=== PATIENT | male | born 1955 | race American Indian/Alaskan Native ===

== ENCOUNTER 2016-05-17 11:34 | Inpatient (IN) | payer BC ==
--- NOTE | 2016-05-17 11:50 | PDOC ---
History of Present Illness - General Chief Complaint: Weakness Stated Complaint: WEAKNESS Time Seen by Provider: 05/17/16 11:36 History Source: Patient Exam Limitations: No Limitations - History of Present Illness Initial Comments: 05/17/16 11:38 The patient is a 61 year old male, with significant past medical history HTN, HLD, CAD, diabetes mellitus type 2 (on insulin), cardiac sarcoidosis, s/p AL s/ p stent x 1, atrial flutter status post electrical cardioversion 8 Pt presents to the ER via EMS s/p inability to get out of bed this morning Pt is having difficulty giving a history as he states, he feels confused PT tells me that he has had a gastroenteritis for the past 2 weeks (according to his , 1 week) which he got from several ill children at his work place. As a result he has had nausea, vomiting, diarrhea Pt denies abdominal pain Pt was noted to worsen significantly between yesterday and today No fevers, no chills No recent travel counselor states he was recently on antibiotics (pt denies this) He completed a prednisone taper 2 weeks ago for his cardiac sarcoidosis Denies chest pain, SOB. Denies lightheadedness,dizziness, paresthesias. PMH: as above PSH: cholecystectomy, PPM Medications: Zyloprim, Mepron, Tikosyn, Lasix, Victoza, Glucophage, Toprol, Cellcept, Deltasone, Xarelto, Crestor, Aldactone, Micardis, Lantus Solostar. PCP- Dr. Toro Cardiac history: Cardiac sarcoidosis with anteroseptal and image. Hypokinesis, depressed ejection fraction) 39% on 04/2015) disease, atrial tach or tachycardia arrhythmias status post permanent pacemaker, ICD Allergies: none reported 05/17/16 11:51 05/17/16 11:55 GENERAL/CONSTITUTIONAL: Yes: Weakness No: fever, chills, loss of appetite. HEAD, EYES, EARS, NOSE AND THROAT: No: change in vision, ear pain, discharge, sore throat, throat swelling. CARDIOVASCULAR: No: chest pain, lightheadedness, palpitations, syncope RESPIRATORY: Yes: cough No: shortness of breath GASTROINTESTINAL: Yes: nausea, vomiting, diarrhea No: abdominal pain GENITOURINARY: No: dysuria, hematuria, frequency, urgency, flank pain. MUSCULOSKELETAL: No: back pain, neck pain, joint pain, muscle swelling or pain SKIN AND BREASTS: No: lesions, pallor, rash or easy bruising. NEUROLOGIC: No: headache, vertigo, paresthesias, weakness ENDOCRINE: No: unexplained weight gain or loss HEMATOLOGIC/LYMPHATIC: No: anemia, easy bleeding, swelling nodes. GENERAL: The patient is in no acute distress, pt appears very weak, A&O x 3, pt feels confused. HEAD: Normal with no signs of trauma. EYES: PERRLA, EOMI, sclera anicteric, conjunctiva clear. ENT: Ears normal, nares patent, oropharynx clear without exudates. Dry mucous membranes. NECK: Normal range of motion, supple without lymphadenopathy, JVD, or masses. LUNGS: Breath sounds equal, clear to auscultation bilaterally. No wheezes, and no crackles. HEART:Regular rate and rhythm, normal S1 and S2 without murmur, rub or gallop. ABDOMEN: Soft, nontender, normoactive bowel sounds. No guarding, no rebound. No masses palpable. EXTREMITIES: Normal range of motion, no edema. NEUROLOGICAL: Cranial nerves II through XII grossly intact. Normal speech. No focal neurological deficits. MUSCULOSKELETAL: Back non-tender to palpation, no CVA tenderness SKIN: Warm, Dry, normal turgor, no rashes or lesions noted. 05/17/16 15:15 Timing/Duration: unsure Past History - Past Medical History Allergies/Adverse Reactions: Allergies Allergy/AdvReac Type Severity Reaction Status Date / Time No Known Allergies Allergy Verified 05/17/16 11:36 Home Medications: Ambulatory Orders Allopurinol [Zyloprim -] 300 mg PO DAILY 01/21/16 Dofetilide [Tikosyn] 250 mcg PO BID 01/21/16 Furosemide [Lasix -] 60 mg PO Q48H 01/21/16 Liraglutide [Victoza -] 1.8 mg SQ DAILY@0700 01/21/16 Metoprolol Succinate [Toprol XL -] 25 mg PO DAILY 01/21/16 Mycophenolate Mofetil [Cellcept -] 1,500 mg PO DAILY 01/21/16 Rivaroxaban [Xarelto -] 20 mg PO HS 01/21/16 Rosuvastatin Calcium [Crestor] 5 mg PO Q48H 01/21/16 Spironolactone [Aldactone] 25 mg PO DAILY 01/21/16 Telmisartan [Micardis] 40 mg PO DAILY 01/21/16 Canagliflozin [Invokana] 300 mg PO DAILY 05/17/16 Furosemide [Lasix] 40 mg PO Q48H 05/17/16 Gabapentin [Neurontin] 100 mg PO HS 05/17/16 Glipizide 5 mg PO BID 05/17/16 Mycophenolate Mofetil [Cellcept] 1,000 mg PO HS 05/17/16 Zolpidem Tartrate [Ambien] 5 mg PO HS 05/17/16 Anemia: No Asthma: No Cancer: No Cardiac Disorders: Yes (PPM, A-FIB,AL 2011) CVA: No COPD: No CHF: No Dementia: No Diabetes: Yes GI Disorders: No Disorders: No HTN: No Hypercholesterolemia: Yes Liver Disease: No Seizures: No Thyroid Disease: No - Surgical History Abdominal Surgery: No Appendectomy: No Cardiac Surgery: Yes (STENT X1, PPM) Cholecystectomy: Yes Lung Surgery: No Neurologic Surgery: No Orthopedic Surgery: No - Psycho/Social/Smoking Cessation Hx Anxiety: No Suicidal Ideation: No Smoking History: Never smoked Hx Alcohol Use: No Drug/Substance Use Hx: No Substance Use Type: None Hx Substance Use Treatment: No Procedures - Central Line Central Line Lumen: triple Central Line Position: femoral (R) Anesthesia: 1% Lidocaine Amount of anesthesia (ccs): 3 Complications: none Post Central Line Insertion: good blood return ED Treatment Course - LABORATORY CBC & Chemistry Diagram: 05/19/16 05:10 05/19/16 05:10 Medical Decision Making - Critical Care Time Total Critical Care Time (minutes): 120 Critical Care Statement: The care of this patient involved high complexity decision making to prevent further life threatening deterioration of the patient 's condition and/or to evalute & treat vital organ system(s) failure or risk of failure. - Medical Decision Making 05/17/16 12:06 Will plan to do Labs CXR Possibly CT Stool cultures ? Will gently hydrates - per old records pt F = 39% trying to obtain pacemaker records (interrogation yesterday) Pt was given 400 cc NS by EMS Initial BP 89/44 05/17/16 12:10 BP transiently improved to 102/59 05/17/16 12:20 Rectal temp 101.8 BP decreased to 89/50 02/04/17 12:21 Call placed to pt PMD Dr. Toro 05/17/16 12:25 Call placed to physician covering Dr Toro He doesn't work at [facility] Recommends calling the transfer line at [facility] 05/17/16 12:28 Laboratory Tests 05/17/16 11:54 Sodium 121 L* Potassium 4.1 Chloride 88 L Carbon Dioxide 19 L Anion Gap 14 BUN 64 H Creatinine 2.1 H Random Glucose 262 H 05/17/16 12:29 Laboratory Tests 05/17/16 11:54 WBC 16.8 H Hgb 14.6 Hct 44.8 Plt Count 105 L Neutrophils % 89.8 H Lymphocytes % 1.7 L 05/17/16 12:53 05/17/16 12:[address] Neri PT can be transferred if Influenza negative but there are no beds at this time ( admitted patients boarding in the ER) and for sure there are no isolation beds ( if patient has influenza) His baseline creatinine is 1.66 Labs demonstrate: Hyponatremia Acute renal insufficiency Leukocytosis (? acute infection vs. effect of prednisone) 05/17/16 13:07 Laboratory Tests 05/17/16 05/17/16 11:54 11:54 INR 3.11 H Acetone, Qual Negative NS bolus of 500 cc ordered for hypotension No evidence of CHF on Xray Will continue to monitor for shortness of breath given CHF history 05/17/16 13:07 When more awake, pt states he actually fell while trying to get into bed this morning He was unable to get up off the floor which was why his called EMS Upon EMS arrival, they also had difficulty getting him up off the floor Will send for Head CT given elevated INR 05/17/16 14:22 Case reviewed with JULIUS Montgomery She will review case with Sriram Case reviewed with Dr Whittington Will Admit to ICU Pt would rather that he go to another hospital We do not have a bed for this patient to go to [facility] at this time, I do not think it prudent to keep pt in the ER awaiting a bed at an outside hospital 05/17/16 16:05 Pt BP remains low INR elevated Right femoral line placed Levophed started at 5mcg/min EMS has arrived to transport pt to [facility] ICU Pt blood pressure remains low This will have to be titrated up, ? vs addition of Inotrope?? Dobutamine I am concerned about repeated IVF boluses w/o definitive airway as his EF is 39% ?, BNP is 10k Pt appears less dehydrated but still clinically appears to be behind on fluids Case reviewed with JULIUS Pantoja 05/17/16 21:41 Clinical Impression: Septic Shock, unclear source *DC/Admit/Observation/Transfer Diagnosis at time of Disposition: Dehydration, Renal insufficiency, Hyponatremia Sepsis Qualifiers: Sepsis type: sepsis due to unspecified organism Qualified Code(s): A41.9 - Sepsis, unspecified organism - Discharge Dispostion Condition at time of disposition: Guarded Admit: Yes
[2016-05-17 11:54] VITALS: BMI 26.9
[2016-05-17] MEDS ORDERED: SODIUM CHLORIDE 1,000 ML IV STA ×2 (11:55→14:27)
[2016-05-17 12:18] LABS: MCH 31.2 pg (25.7-33.7); MCHC 32.7 g/dl (32.0-35.9); MEAN CELL VOLUME 95.4 fl (80-96); PLATELET COUNT 105 K/MM3 (134-434); RDW 13.9 % (11.9-15.9); WHITE BLOOD COUNT 16.8 K/mm3 (4.0-10.0)
[2016-05-17] MEDS ORDERED: ACETAMINOPHEN 1000 MG/100 ML VIAL (NON FORMULARY) IVPB ONE (12:19)
[2016-05-17 12:43] LABS: BILIRUBIN,TOTAL 2.5 mg/dl (0.2-1.0); CALCIUM 8.3 mg/dl (8.4-10.2); CREATININE 2.1 mg/dl (0.6-1.3); MAGNESIUM 2.3 mg/dL (1.8-2.4); TOT PROT 5.5 g/dl (6.4-8.3)
[2016-05-17 12:51] LABS: ACTIVATED PTT 46.5 SECONDS (24.0-38.9)
[2016-05-17 12:55] LABS: INR 3.11 (0.82-1.09); PROTHROMBIN TIME (PATIENT) 33.9 SEC (10.2-13.0)
[2016-05-17] MEDS ORDERED: SODIUM CHLORIDE 250 ML IV STA ×2 (12:57→13:18)
[2016-05-17 13:11] LABS: TROPONIN I (DFP) 0.21 ng/ml (0.03-0.50)
[2016-05-17 13:30] LABS: PLATELET ESTIMATE NORMAL (NORMAL)
[2016-05-17 13:31] LABS: VENOUS PH 7.35 (7.31-7.41)
[2016-05-17 13:39] LABS: CK MB 5.4 ng/ml (0.3-4.0)
[2016-05-17] MEDS ORDERED: PIPERACILLIN/TAZOB 3.375 GM 3.375 GM in DEXTROSE 5%-WATER - 50 ML IVPB ONE (13:41)
[2016-05-17] MEDS ORDERED: VANCOMYCIN 1,000 MG in DEXTROSE 5%-WATER - 250 ML IVPB ONE (13:42)
[2016-05-17] MEDS ORDERED: PIPERACILLIN/TAZOBACTAM 3.375 GM VIAL IVPB ONE (13:52)
[2016-05-17] MEDS ORDERED: VANCOMYCIN 1,000 MG VIAL (RESTRICTED TO ID ONLY) ONE (13:53)
[2016-05-17] MEDS ORDERED: SODIUM CHLORIDE 0.9% 1000 ML INFUS.BAG IV ONE (14:27)
[2016-05-17] MEDS ORDERED: NOREPINEPHRINE BITARTRATE 4,000 MCG in DEXTROSE 5%-WATER - 496 ML IV ONE (15:55)
--- NOTE | 2016-05-17 15:55 | HP ---
CHIEF COMPLAINT: Nausea, vomiting, diarrhea, weakness PCP: Dr. Toro, [place] Cardiology: Dr. Alonzo, [facility] EP: Dr. Hudson, [facility] HISTORY OF PRESENT ILLNESS 61 year-old man with a PMH of HTN, HLD, CAD s/p AL s/p stents s/p PPM/AICD, 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 About 2 weeks ago the patient developed chills after having been exposed to several ill children at work. He then developed nausea, vomiting, and diarrhea and those symptoms have persisted. He became profoundly weak over the past 24 hours. This morning he slipped off his bed to the floor and was too weak to get up. He also felt mentally confused. He has a mild cough. 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[place] [place] Smoking: no Alcohol: no Drugs: no Family History: compliance professional at a private [employer] in [place] Allergies No Known Allergies Allergy (Verified 05/17/16 11:36) Home Medications Medication Instructions Recorded Allopurinol [Zyloprim -] 300 mg PO DAILY 01/21/16 Dofetilide [Tikosyn] 250 mcg PO BID 01/21/16 Furosemide [Lasix -] 60 mg PO DAILY 01/21/16 Liraglutide [Victoza -] 1.8 mg SQ DAILY@0700 01/21/16 Metoprolol Succinate [Toprol XL -] 25 mg PO DAILY 01/21/16 Mycophenolate Mofetil [Cellcept -] 1,000 mg PO BID 01/21/16 Rivaroxaban [Xarelto -] 20 mg PO HS 01/21/16 Rosuvastatin Calcium [Crestor] 5 mg PO HS 01/21/16 Spironolactone [Aldactone] 25 mg PO DAILY 01/21/16 Telmisartan [Micardis] 40 mg PO DAILY 01/21/16 Canagliflozin [Invokana] 300 mg PO DAILY 05/17/16 Gabapentin [Neurontin] 100 mg PO HS 05/17/16 Glipizide 5 mg PO DAILY 05/17/16 Zolpidem Tartrate [Ambien] 5 mg PO HS 05/17/16 REVIEW OF SYSTEMS CONSTITUTIONAL: Present: chills, weakness Absent: fever, diaphoresis, malaise, loss of appetite, weight change HEENT: Absent: rhinorrhea, nasal congestion, throat pain, throat swelling, difficulty swallowing, mouth swelling, ear pain, eye pain, visual changes CARDIOVASCULAR: Absent: chest pain, syncope, palpitations, irregular heart rate, lightheadedness , peripheral edema RESPIRATORY: Present: cough Absent: shortness of breath, dyspnea with exertion, orthopnea, wheezing, stridor , hemoptysis GASTROINTESTINAL: Present: nausea, vomiting, diarrhea Absent: abdominal pain, abdominal distension, constipation, melena, hematochezia GENITOURINARY: Present: oliguria Absent: dysuria, frequency, urgency, hesitancy, hematuria, flank pain, genital pain MUSCULOSKELETAL: Present: myalgia Absent: arthralgia, joint swelling, back pain, neck pain SKIN: Absent: rash, itching, pallor HEMATOLOGIC/IMMUNOLOGIC: Absent: easy bleeding, easy bruising, lymphadenopathy, frequent infections ENDOCRINE: Absent: unexplained weight gain, unexplained weight loss, heat intolerance, cold intolerance NEUROLOGIC: Present: mental confusion Absent: headache, focal weakness or paresthesias, dizziness, unsteady gait, seizure, bladder or bowel incontinence PSYCHIATRIC: Absent: anxiety, depression, suicidal or homicidal ideation, hallucinations. PHYSICAL EXAMINATION Vital Signs - 24 hr 05/17/16 05/17/16 05/17/16 11:36 12:06 12:09 Temperature 98 F 101.8 F H Pulse Rate 68 Pulse Rate [ 66 Apical] Respiratory 18 18 Rate Blood Pressure 89/44 Blood Pressure 102/59 [Right Arm] O2 Sat by Pulse 99 Oximetry (%) 05/17/16 05/17/16 05/17/16 12:22 12:29 13:45 Temperature Pulse Rate Pulse Rate [ 66 63 62 Apical] Respiratory 26 H Rate Blood Pressure Blood Pressure 88/59 99/56 84/53 [Right Arm] O2 Sat by Pulse 98 Oximetry (%) 05/17/16 05/17/16 05/17/16 14:14 14:58 15:08 Temperature Pulse Rate Pulse Rate [ 60 65 61 Apical] Respiratory 22 20 26 H Rate Blood Pressure Blood Pressure 74/51 72/49 81/53 [Right Arm] O2 Sat by Pulse 100 100 100 Oximetry (%) 05/17/16 05/17/16 15:19 15:23 Temperature 97.7 F 97 F L Pulse Rate 67 Pulse Rate [ 60 Apical] Respiratory 20 18 Rate Blood Pressure 87/63 Blood Pressure 89/61 [Right Arm] O2 Sat by Pulse 100 Oximetry (%) GENERAL: Awake, alert. Speech is occasionally mildly delayed HEAD: Normal with no signs of trauma. EYES: Pupils equal, round and reactive to light, extraocular movements intact, sclera anicteric, conjunctiva clear. No ptosis. EARS, NOSE, THROAT: Ears normal, nares patent, oropharynx clear without exudates. Moist mucous membranes. NECK: Normal range of motion, supple without lymphadenopathy, JVD, or masses. LUNGS: Breath sounds equal, clear to auscultation bilaterally. No wheezes, and no crackles. No accessory muscle use. HEART: Regular rate and rhythm, normal S1 and S2 without murmur, rub or gallop. ABDOMEN: Soft, nontender, not distended, normoactive bowel sounds, no guarding, no rebound, no masses. MUSCULOSKELETAL: Normal range of motion at all joints. No bony deformities or tenderness. No CVA tenderness. UPPER EXTREMITIES: 2+ pulses, warm, well-perfused. No cyanosis. No clubbing. Cap refill <2 seconds. No peripheral edema. LOWER EXTREMITIES: 2+ pulses, warm, well-perfused. No calf tenderness. No peripheral edema. NEUROLOGICAL: Cranial nerves II-XII intact. Normal speech. Gait not observed. PSYCHIATRIC: Cooperative. Good eye contact. Appropriate mood and affect. SKIN: Warm, dry, normal turgor, no rashes or lesions noted. Laboratory Results - last 24 hr 05/17/16 05/17/16 05/17/16 11:45 11:54 11:54 WBC 16.8 H RBC 4.69 Hgb 14.6 Hct 44.8 MCV 95.4 MCHC 32.7 RDW 13.9 Plt Count 105 L MPV 11.0 Neutrophils % 85.0 H Lymphocytes % 5.0 L Monocytes % 2.0 L Eosinophils % Bookkeeping Assistant Basophils % Bookkeeping Assistant Band Neutrophils 8.0 Platelet Estimate Normal INR 3.11 H PTT (Actin FS) 46.5 H VBG pH POC VBG pCO2 POC VBG pO2 Sodium Potassium Chloride Carbon Dioxide Anion Gap BUN Creatinine Creat Clearance w eGFR Random Glucose Lactic Acid 3.362 H* Calcium Magnesium Total Bilirubin AST ALT Alkaline Phosphatase Creatine Kinase CK-MB (CK-2) CK-MB (CK-2) Rel Index Troponin I B-Natriuretic Peptide Total Protein Albumin Total Amylase Lipase Acetone, Qual Blood Type Antibody Screen 05/17/16 05/17/16 05/17/16 11:54 11:54 11:54 WBC RBC Hgb Hct MCV MCHC RDW Plt Count MPV Neutrophils % Lymphocytes % Monocytes % Eosinophils % Basophils % Band Neutrophils Platelet Estimate INR PTT (Actin FS) VBG pH 7.35 POC VBG pCO2 36.7 L POC VBG pO2 19.5 L* Sodium 121 L* Potassium 4.1 Chloride 88 L Carbon Dioxide 19 L Anion Gap 14 BUN 64 H Creatinine 2.1 H Creat Clearance w eGFR 32.06 Random Glucose 262 H Lactic Acid Calcium 8.3 L Magnesium 2.3 Total Bilirubin 2.5 H AST 45 H ALT 29 Alkaline Phosphatase 81 Creatine Kinase 276 H CK-MB (CK-2) Cancelled 5.4 H CK-MB (CK-2) Rel Index 2.0 Troponin I 0.21 B-Natriuretic Peptide Total Protein 5.5 L Albumin 3.0 L Total Amylase 35 Lipase 32 Acetone, Qual Blood Type Antibody Screen 05/17/16 05/17/16 05/17/16 11:54 11:54 11:58 WBC RBC Hgb Hct MCV MCHC RDW Plt Count MPV Neutrophils % Lymphocytes % Monocytes % Eosinophils % Basophils % Band Neutrophils Platelet Estimate INR PTT (Actin FS) VBG pH POC VBG pCO2 POC VBG pO2 Sodium Potassium Chloride Carbon Dioxide Anion Gap BUN Creatinine Creat Clearance w eGFR Random Glucose Lactic Acid Calcium Magnesium Cancelled Total Bilirubin AST ALT Alkaline Phosphatase Creatine Kinase CK-MB (CK-2) CK-MB (CK-2) Rel Index Troponin I B-Natriuretic Peptide Total Protein Albumin Total Amylase Lipase Acetone, Qual Negative Blood Type B POSITIVE B POSITIVE Antibody Screen Negative 05/17/16 12:50 WBC RBC Hgb Hct MCV MCHC RDW Plt Count MPV Neutrophils % Lymphocytes % Monocytes % Eosinophils % Basophils % Band Neutrophils Platelet Estimate INR PTT (Actin FS) VBG pH POC VBG pCO2 POC VBG pO2 Sodium Potassium Chloride Carbon Dioxide Anion Gap BUN Creatinine Creat Clearance w eGFR Random Glucose Lactic Acid Calcium Magnesium Total Bilirubin AST ALT Alkaline Phosphatase Creatine Kinase CK-MB (CK-2) CK-MB (CK-2) Rel Index Troponin I B-Natriuretic Peptide 77654.75 H Total Protein Albumin Total Amylase Lipase Acetone, Qual Blood Type Antibody Screen ASSESSMENT/PLAN: 61 year-old man with a PMH of HTN, HLD, CAD s/p AL s/p stents s/p PPM/AICD, 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 Admitted for septic shock. Septic shock --presents with fever, hypotension, leukocytosis in the setting of a viral syndrome that started about two weeks ago; immunosupressed patient --remained hypotensive despite aggressive fluid resuscitation; femoral line placed (must be removed within 24 hours) and levophed started --presently MAP 71 on levo @5; MAP goal >65 --received Vanco x 1 and Zosyn x 1 in ED; continue Zosyn per ID; flu swab negative, cultures pending --TSH pending Lactic acidosis --improved with fluid resuscitation, 3.3-->2.4-->1.9 Systolic heart failure w/ PPM/AICD --per patient proof carrier recently increased his lasix for lower extremity edema and has EF 39% or 33% --BNP 10,080 --hold diuretics --first troponin 0.21, two pending CAD s/p stents s/p PPM/AICD --continue dofetilide at lower dose 0.125mg BID --hold Toprol XL for now Acute kidney injury --Cr 2.1, baseline 1.6; CrCl 20 --this is likely due to severe dehydration --CPK mildly elevated --urine studies pending --stop xarelto due to ELOY Afib on Xarelto --stop Xarelto due to ELOY --start heparin drip --paced rhythm @ 60bpm Cardiac sarcoidosis --continue mycophenalate Hypertension --hold home Telmisartan, spironolactone, Lasix AODM --hold home oral anti-glycemic agents --Novolog sliding scale coverage Hyperlipidemia --continue Crestor DVT prophylaxis: heparin drip Dispo: continues to require ICU care. Full Code. Visit type - Emergency Visit Emergency Visit: Yes ED Registration Date: 05/17/16 Care time: The patient presented to the Emergency Department on the above date and was hospitalized for further evaluation of their emergent condition. - New Patient This patient is new to me today: Yes Date on this admission: 05/17/16 - Critical Care Critical Care patient: Yes Total Critical Care Time (in minutes): 90 Critical Care Statement: The care of this patient involved high complexity decision making to prevent further life threatening deterioration of the patient 's condition and/or to evalute & treat vital organ system(s) failure or risk of failure.
[2016-05-17] MEDS ORDERED: NOREPINEPHRINE BITARTRATE 8,000 MCG in SODIUM CHLORIDE 0.45% 992 ML IV SCH (16:00)
--- NOTE | 2016-05-17 17:23 | EKG ---
Test Reason : Blood Pressure : / mmHG Vent. Rate : 065 BPM Atrial Rate : 055 BPM P-R Int : 000 ms QRS Dur : 102 ms QT Int : 416 ms P-R-T Axes : 000 118 127 degrees QTc Int : 432 ms Ventricular-paced rhythm Biventricular pacemaker detected Underlying ATRIAL TACHYCARDIA ABNORMAL ECG NO PREVIOUS ECGS AVAILABLE Confirmed by LULÚ FREDERICK, PEMA ([id number]) on 05/17/2016 5:22:57 PM Referred By: REGINA CALDERON Confirmed By:PEMA CHINO MD
--- NOTE | 2016-05-17 18:58 | CONSULT ---
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 About 2 weeks ago the patient developed chills after having been exposed to several ill children at work. He then developed nausea, vomiting, and diarrhea and those symptoms have persisted. He became profoundly weak over the past 24 hours. This morning he slipped off his bed to the floor and was too weak to get up. He also felt mentally confused. He has a mild cough. 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 patient came to the hospital with septic shock and the patient was initially admitted to [facility] and then was transferred here patient was in septic shock and was started on pressors,he was given iv fluids His urinie out put was minimal for quite some time and then patient did pass urine patients mental status is very good and he is able to tell most of the history according to the patient there were lot of people sick around him and patient says that most of the kids were sick patient now feels a little better but still says he has shakes and weakness present patient also mentions that he has had dirrhoea and which after couple of days became better,says at the moment he does not have dirrhoea - History Source History Provided By: Patient, Family Member Limitations to Obtaining History: No Limitations - Alcohol/Substance Use Hx Alcohol Use: No - Smoking History Smoking history: Never smoked Home Medications - Allergies Allergies/Adverse Reactions: Allergies Allergy/AdvReac Type Severity Reaction Status Date / Time No Known Allergies Allergy Verified 05/17/16 11:36 - Home Medications Home Medications: Ambulatory Orders Allopurinol [Zyloprim -] 300 mg PO DAILY 01/21/16 Dofetilide [Tikosyn] 250 mcg PO BID 01/21/16 Furosemide [Lasix -] 60 mg PO Q48H 01/21/16 Liraglutide [Victoza -] 1.8 mg SQ DAILY@0700 01/21/16 Metoprolol Succinate [Toprol XL -] 25 mg PO DAILY 01/21/16 Mycophenolate Mofetil [Cellcept -] 1,500 mg PO DAILY 01/21/16 Rivaroxaban [Xarelto -] 20 mg PO HS 01/21/16 Rosuvastatin Calcium [Crestor] 5 mg PO Q48H 01/21/16 Spironolactone [Aldactone] 25 mg PO DAILY 01/21/16 Telmisartan [Micardis] 40 mg PO DAILY 01/21/16 Canagliflozin [Invokana] 300 mg PO DAILY 05/17/16 Furosemide [Lasix] 40 mg PO Q48H 05/17/16 Gabapentin [Neurontin] 100 mg PO HS 05/17/16 Glipizide 5 mg PO BID 05/17/16 Mycophenolate Mofetil [Cellcept] 1,000 mg PO HS 05/17/16 Zolpidem Tartrate [Ambien] 5 mg PO HS 05/17/16 Review of Systems - Review of Systems Constitutional: reports: Fever, Lethargy, Weakness Eyes: reports: No Symptoms HENT: reports: No Symptoms Neck: reports: No Symptoms Cardiovascular: reports: No Symptoms Respiratory: reports: Cough, SOB Gastrointestinal: reports: No Symptoms Genitourinary: reports: No Symptoms Musculoskeletal: reports: Joint Swelling, Muscle Cramps Integumentary: reports: No Symptoms Neurological: reports: No Symptoms Endocrine: reports: No Symptoms Hematology/Lymphatic: reports: No Symptoms Psychiatric: reports: No Symptoms Physical Exam Vital Signs: Vital Signs Temperature 97.7 F 05/17/16 17:26 Pulse Rate 60 05/17/16 18:00 Respiratory Rate 18 05/17/16 18:00 Blood Pressure 90/57 05/17/16 18:00 O2 Sat by Pulse Oximetry (%) 100 05/17/16 17:26 Constitutional: Yes: Moderate Distress, Other Eyes: Yes: Conjunctiva Clear, Other HENT: Yes: Atraumatic Neck: Yes: Supple, Trachea Midline Cardiovascular: Yes: Regular Rate and Rhythm. No: Murmur, Rub Respiratory: Yes: Regular, CTA Bilaterally Gastrointestinal: Yes: Normal Bowel Sounds, Soft Musculoskeletal: Yes: WNL Extremities: Yes: Other (swelling at the joints) Neurological: Yes: Alert, Oriented Psychiatric: Yes: Alert, Oriented Imaging - Results Chest X-ray: Report Reviewed, Image Reviewed X-ray: Report Reviewed, Image Reviewed Cat Scan: Report Reviewed, Image Reviewed Assessment/Plan after evaulating this patient ,i can say that this patient is in very critical condition All his symptoms are pointing towards viral problem but he could very well have bacterial infection as he is very immunocompromised and has multiple medical problem Or he could have both viral infection superimposed by bacterial infection patient has already received vanco and zosyn and i will wait for blood cx to come bback before i initiate othe abx he will need to be covered with broad spectrum abx Again as mentioned this patient is very critical and have to be aggressively managed with abx and hydration cardiology on board who will manage [place] [id number] Problem List - Problems (1) Dehydration Code(s): E86.0 - DEHYDRATION (2) Hyponatremia Code(s): E87.1 - HYPO-OSMOLALITY AND HYPONATREMIA (3) Renal insufficiency Code(s): N28.9 - DISORDER OF KIDNEY AND URETER, UNSPECIFIED (4) Sepsis Code(s): A41.9 - SEPSIS, UNSPECIFIED ORGANISM Qualifiers: Sepsis type: sepsis due to unspecified organism Qualified Code(s): A41.9 - Sepsis, unspecified organism (5) Shock Code(s): R57.9 - SHOCK, UNSPECIFIED (6) Cardiac sarcoidosis Code(s): D86.85 - SARCOID MYOCARDITIS r/o influenza r/o bacterial infection septic shock plan continue abx aggressive hydration await for bacterial cultures patient needs lines foleys to be placed very close monitoring of the patient continue pressors to maintain his bp cc time 60 min
[2016-05-17] MEDS: NOREPINEPHRINE BITARTRATE 8,000 MCG in DEXTROSE 5%-WATER - 492 ML IV SCH (19:00)
--- NOTE | 2016-05-17 19:00 | CON.CARD ---
Cardiology Consult (text) - Consultation Consultation Note: CC: hypotension, sarcoidosis 61 yo with h/o cardiac sarcoidosis with systolic dysfunction (EF 33 or 39% 2015), BiVICD, CAD s/p [place] and stent x 1, atrial flutter s/p cardioversion 8 on dofetilide HTN, HLD, IDDM presents with weakness, confusion. He completed a prednisone taper 2 weeks ago for his cardiac sarcoidosis. Continued on cellcept. gastroenteritis for the past 2 weeks with + nausea, vomiting, diarrhea, minimal po intake. Continued lasix and aldactone up until 3 days ago. + weakness, confusion + joint pains, shoulders, hands and feet. + hand paresthesias. At baseline good functional capacity. exercises regularly on stationary bike for 15 min. Although does get sob/fatigue when walking long distances or uphill. Here has been hypotensive and has required IVF resuscitation as well as norepinephrine with improvement in symptoms. denies sob, cp, orthopnea, pnd, le edema, palps, bleeding. denies abdominal pain, fevers, chills, sweats, rashes, cough, congestion, visual disturbances, h/a. Marina Porter and EP at [place]. PMH: as above PSH: cholecystectomy, BiVICD social hx: never smoker fam hx: brother with CAD in his 60's. ros: per hpi. Ambulatory Orders Allopurinol [Zyloprim -] 300 mg PO DAILY 01/21/16 Dofetilide [Tikosyn] 250 mcg PO BID 01/21/16 Furosemide [Lasix -] 60 mg PO DAILY 01/21/16 Liraglutide [Victoza -] 1.8 mg SQ DAILY@0700 01/21/16 Metoprolol Succinate [Toprol XL -] 25 mg PO DAILY 01/21/16 Mycophenolate Mofetil [Cellcept -] 1,000 mg PO BID 01/21/16 Rivaroxaban [Xarelto -] 20 mg PO HS 01/21/16 Rosuvastatin Calcium [Crestor] 5 mg PO HS 01/21/16 Spironolactone [Aldactone] 25 mg PO DAILY 01/21/16 Telmisartan [Micardis] 40 mg PO DAILY 01/21/16 Canagliflozin [Invokana] 300 mg PO DAILY 05/17/16 Gabapentin [Neurontin] 100 mg PO HS 05/17/16 Glipizide 5 mg PO DAILY 05/17/16 Zolpidem Tartrate [Ambien] 5 mg PO HS 05/17/16 Current Medications Dofetilide (Tikosyn (Restricted To Cardiology) -) 0.25 mg PO BID ESTELA Gabapentin (Neurontin -) 100 mg PO HS [facility] Sodium Chloride (Normal Saline -) 1,000 mls @ 100 mls/hr IV ASDIR STA Stop: 05/17/16 21:54 Last Admin: 05/17/16 11:55 Dose: 100 mls/hr Norepinephrine Bitartrate 8, (000 mcg/ Dextrose) 500 mls @ 9.84 mls/hr IV ASDIR ESTELA; 0.03 MCG/KG/MIN PRN Reason: Protocol Mycophenolate Mofetil (Cellcept -) 1,000 mg PO BID ESTELA Rivaroxaban (Xarelto -) 20 mg PO HS [facility] Vital Signs Period Temp Pulse Resp BP Sys/Reno Pulse Ox Last 24 Hr 97 F-101.8 F 60-68 18-26 72-102/42-72 98-100 Intake & Output 05/15/16 05/16/16 05/17/16 05/18/16 07:59 07:59 07:59 07:59 Intake Total 2350 Balance 2350 Weight 193 lb NAC, calm JVD flat, neck supple RRR nl s1, s2 no m/r/g bibasilar rales, nl effort + bs soft nt nd ext without e/c/c + dp/pt aaox3 no jaundice, diahphoresis CBC, BMP 05/17/16 11:54 05/17/16 11:54 Laboratory Tests 05/17/16 05/17/16 05/17/16 11:45 11:54 11:54 Band Neutrophils 8.0 INR 3.11 H Lactic Acid 3.362 H* Magnesium Total Bilirubin AST ALT Alkaline Phosphatase Creatine Kinase CK-MB (CK-2) Troponin I B-Natriuretic Peptide Albumin 05/17/16 05/17/16 05/17/16 11:54 11:54 12:50 Band Neutrophils INR Lactic Acid Magnesium 2.3 Total Bilirubin 2.5 H AST 45 H ALT 29 Alkaline Phosphatase 81 Creatine Kinase 276 H CK-MB (CK-2) 5.4 H Troponin I 0.21 B-Natriuretic Peptide 81592.75 H Albumin 3.0 L 05/17/16 14:13 Band Neutrophils INR Lactic Acid 2.437 H* Magnesium Total Bilirubin AST ALT Alkaline Phosphatase Creatine Kinase CK-MB (CK-2) Troponin I B-Natriuretic Peptide Albumin EKG: Biventricular paced rhythm. Underlying atrial tachycardia/flutter. tele: Biv paced CXR: clear lung ruiz 61 yo with h/o cardiac sarcoidosis with systolic dysfunction (EF 33 or 39% 2015), BiVICD, CAD s/p [place] and stent x 1, atrial flutter s/p cardioversion 8 on dofetilide HTN, HLD, IDDM presents with weakness, confusion. 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 + PET scan for sarcoid two years ago. (no pulm manifestations) Initiated prednisone treatment in October, but was looking for alternative so started cellcept in december and transitioned off prednisone recently this April. - Ok to continue IVF as needed for resuscitation. Agree with norepinephrine. Goal MAP's > 65 and + uop. (at baseline patient's systolic bp typically 100's- 110's) - s/p BIV ICD (no h/o ventricular arrhythmias). Per patient most recent EF was either 33 or 39% - holding metoprolol, telmisartan and spironlactone while hypotensive - correct electrolyte abnormalities. - recommend rheumatology consult. aflutter - currently rate controlled with BiV pacing - Because of acute renal failure, would recommend transitioning from xarelto to heparin vdrip. Recommend initiating heparin drip at time of next scheduled xarelto dose. - con't dofetilide, but would reduce dose to .125 mg in light of renal function. close monitoring. CAD - no anginal symptoms. troponins neg x 1. con't HEVER. - con't AC. (not on ASA, defer to primary baller tender). ok to hold statin until liver function normalizes. cct: > 35 min
[2016-05-17 20:10] LABS: MCH 31.8 pg (25.7-33.7); MCHC 32.7 g/dl (32.0-35.9); MEAN CELL VOLUME 97.2 fl (80-96); MEAN PLT VOLUME 12.4 fl (7.5-11.1); PLATELET COUNT 101 K/MM3 (134-434)
[2016-05-17 20:23] LABS: INR 2.9 (0.82-1.09); PROTHROMBIN TIME (PATIENT) 32.6 SEC (9.98-11.88)
[2016-05-17] MEDS ORDERED: HEPARIN NA (PORCINE) 5,000 UNITS/ML 1ML VIAL IVPUSH PRN ×2 (20:23)
[2016-05-17 20:33] LABS: CALCIUM 7.6 mg/dL (8.5-10.1); CREATININE 1.9 mg/dL (0.7-1.3); MAGNESIUM 2.5 mg/dL (1.8-2.4); PHOSPHOROUS 3.6 mg/dL (2.5-4.9)
[2016-05-17] MEDS: HEPARIN - 25,000 UNIT in SODIUM CHLORIDE 495 ML IV SCH (21:00)
--- NOTE | 2016-05-17 21:00 | CONSULT ---
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 Per report pt developed chills at home after being exposed to ill children at work. Subsequently developed nausea, vomiting, diarrhea with poor PO intake which have persisted, now presenting with profound weakness over the past 24 hrs. Pt has continued to take his home meds including lasix and aldactone. Also per pt lasix dose recently increased for LE edema. Pt reports having slipped at home from the bed to the floor and being too weak to get up, also complains of some confusion and a mild cough. Of note, pt recently completed a prednisone taper 2 weeks ago for his cardiac sarcoidosis and is also on cellcept. In the ED, pt was febrile to 101.8 and hypotensive 70s/40s requiring IVF resuscitation and levophed. A femoral central line was placed. Labs were notable for WBC 16.8, Na 121, BUN/Creat 64/2.1, lactate 3.3, trop 0.21, BNP 10k. He was given vanco and zosyn and transferred to the ICU. ID was consulted, recd continuing zosyn. Cards also consulted. Xarelto held given ELOY and heparin gtt started. Repeat lactate downtrending to 2.4-> 1.9. Creatinine repeat 1.9. BNP down to 6K and repeat trops pending. Current Medications Allopurinol (Zyloprim -) 300 mg PO DAILY ESTELA Chlorhexidine Gluconate (Hibiclens For Decolonization -) 1 applic TP HS ESTELA Dofetilide (Tikosyn (Restricted To Cardiology) -) 0.125 mg PO BID ETSELA Gabapentin (Neurontin -) 100 mg PO HS ESTELA Last Admin: 05/17/16 22:06 Dose: 100 mg Heparin Sodium (Porcine) (Heparin -) 1,000 unit IVPUSH PRN PRN PRN Reason: Heparin Heparin Sodium (Porcine) (Heparin -) 5,000 unit IVPUSH PRN PRN PRN Reason: Heparin Heparin Sodium (Porcine) (Heparin -) 5,000 unit SQ BID ESTELA Norepinephrine Bitartrate 8, (000 mcg/ Dextrose) 500 mls @ 9.84 mls/hr IV ASDIR ESTELA; 0.03 MCG/KG/MIN PRN Reason: Protocol Last Admin: 05/17/16 19:00 Dose: Not Given Heparin Sodium (Porcine) 25, (000 unit/ Sodium Chloride) 500 mls @ 20 mls/hr IV TITR ESTELA; 1,000 UNIT/HR PRN Reason: Protocol Last Admin: 05/17/16 21:00 Dose: 20 mls/hr Mupirocin (Bactroban Ointment (For Decolonization) -) 1 applic NS BID ESTELA Stop: 05/22/16 21:59 Mycophenolate Mofetil (Cellcept -) 1,000 mg PO HS ESTELA Mycophenolate Mofetil (Cellcept -) 1,500 mg PO DAILY ESTELA Piperacillin Sod/Tazobactam Sod (Zosyn 3.375gm Ivpb (Pre-Docked)) 3.375 gm IVPB Q8H-IV ESTELA Last Admin: 05/17/16 22:05 Dose: 3.375 gm Rosuvastatin Calcium (Crestor -) 5 mg PO Q48H ESTELA - History Source History Provided By: Patient, Medical Record Limitations to Obtaining History: No Limitations - Past Medical History Cardio/Vascular: Yes: AFIB, CAD, CHF, HTN, Hyperlipdemia, PR, Other (cardiac sarcoid) Endocrine: Yes: Diabetes Mellitus - Past Surgical History Past Surgical History: Yes: AICD, Cholecystectomy - Alcohol/Substance Use Hx Alcohol Use: No - Smoking History Smoking history: Never smoked - Social History 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 Home Medications - Allergies Allergies/Adverse Reactions: Allergies Allergy/AdvReac Type Severity Reaction Status Date / Time No Known Allergies Allergy Verified 05/17/16 11:36 - Home Medications Home Medications: Ambulatory Orders Allopurinol [Zyloprim -] 300 mg PO DAILY 01/21/16 Dofetilide [Tikosyn] 250 mcg PO BID 01/21/16 Furosemide [Lasix -] 60 mg PO Q48H 01/21/16 Liraglutide [Victoza -] 1.8 mg SQ DAILY@0700 01/21/16 Metoprolol Succinate [Toprol XL -] 25 mg PO DAILY 01/21/16 Mycophenolate Mofetil [Cellcept -] 1,500 mg PO DAILY 01/21/16 Rivaroxaban [Xarelto -] 20 mg PO HS 01/21/16 Rosuvastatin Calcium [Crestor] 5 mg PO Q48H 01/21/16 Spironolactone [Aldactone] 25 mg PO DAILY 01/21/16 Telmisartan [Micardis] 40 mg PO DAILY 01/21/16 Canagliflozin [Invokana] 300 mg PO DAILY 05/17/16 Furosemide [Lasix] 40 mg PO Q48H 05/17/16 Gabapentin [Neurontin] 100 mg PO HS 05/17/16 Glipizide 5 mg PO BID 05/17/16 Mycophenolate Mofetil [Cellcept] 1,000 mg PO HS 05/17/16 Zolpidem Tartrate [Ambien] 5 mg PO HS 05/17/16 Review of Systems - Review of Systems Constitutional: reports: Lethargy, Loss of Appetite, Weakness Cardiovascular: denies: Chest Pain, Palpitations, Shortness of Breath Respiratory: denies: Cough, SOB Gastrointestinal: reports: Diarrhea, Nausea, Vomiting Genitourinary: denies: Burning, Dysuria Musculoskeletal: reports: Joint Pain, Muscle Weakness Neurological: reports: Confusion, Unsteady Gait, Weakness. denies: Dizziness Physical Exam Vital Signs: Vital Signs Temperature 97.9 F 05/17/16 20:07 Pulse Rate 67 05/17/16 20:07 Respiratory Rate 19 05/17/16 20:07 Blood Pressure 90/62 05/17/16 20:07 O2 Sat by Pulse Oximetry (%) 100 05/17/16 17:26 Eyes: Yes: Conjunctiva Clear, PERRL HENT: Yes: Atraumatic, Other (dry mm's) Cardiovascular: Yes: S1, S2, Other (paced 60's) Respiratory: Yes: CTA Bilaterally, On Nasal O2. No: Accessory Muscle Use Gastrointestinal: Yes: Hypoactive Bowel Sounds. No: Tenderness ...Rectal Exam: Yes: Deferred Musculoskeletal: Yes: Joint Stiffness, Muscle Pain Edema: Yes Edema: LLE: 1+, RLE: 1+ Peripheral Pulses WNL: Yes Neurological: Yes: Lethargy ...Motor Strength: LUE (decreased motor strength) Labs: CBCD WBC 15.0 K/mm3 (4.0-10.0) H 05/17/16 17:50 RBC 4.08 M/mm3 (4.00-5.60) 05/17/16 17:50 Hgb 13.0 GM/dL (11.7-16.9) 05/17/16 17:50 Hct 39.7 % (35.4-49) 05/17/16 17:50 MCV 97.2 fl (80-96) H 05/17/16 17:50 MCHC 32.7 g/dl (32.0-35.9) 05/17/16 17:50 RDW 15.0 % (11.9-15.9) 05/17/16 17:50 Plt Count 101 K/MM3 (134-434) L 05/17/16 17:50 MPV 12.4 fl (7.5-11.1) H 05/17/16 17:50 CMP Sodium 127 mmol/L (136-145) L 05/17/16 17:50 Potassium 3.8 mmol/L (3.5-5.1) 05/17/16 17:50 Chloride 94 mmol/L (98-107) L 05/17/16 17:50 Carbon Dioxide 18 mmol/L (21-32) L 05/17/16 17:50 Anion Gap 15 (8-16) 05/17/16 17:50 BUN 65 mg/dL (7-18) H 05/17/16 17:50 Creatinine 1.9 mg/dL (0.7-1.3) H 05/17/16 17:50 Creat Clearance w eGFR 32.06 (>60) 05/17/16 11:54 Calcium 7.6 mg/dL (8.5-10.1) L 05/17/16 17:50 Total Bilirubin 2.5 mg/dl (0.2-1.0) H 05/17/16 11:54 AST 45 U/L (10-42) H 05/17/16 11:54 ALT 29 U/L (10-40) 05/17/16 11:54 Alkaline Phosphatase 81 U/L (32-92) 05/17/16 11:54 Total Protein 5.5 g/dl (6.4-8.3) L 05/17/16 11:54 Albumin 3.0 g/dl (3.5-5.0) L 05/17/16 11:54 Troponin, BNP 05/17/16 05/17/16 05/17/16 11:54 12:50 17:50 Troponin I 0.21 B-Natriuretic Peptide 10665.75 H 6459.94 H INR, PTT INR 2.90 (0.82-1.09) H 05/17/16 17:50 Microbiology 05/17/16 12:51 Nasopharyngeal Swab Influenza Types A,B Antigen (RENEE) - Final 05/17/16 12:51 Nasopharyngeal Swab - Final Imaging - Results Chest X-ray: Report Reviewed, Other (unable to view image) Cat Scan: Report Reviewed Problem List - Problems (1) Dehydration Code(s): E86.0 - DEHYDRATION (2) Hyponatremia Code(s): E87.1 - HYPO-OSMOLALITY AND HYPONATREMIA (3) Renal insufficiency Code(s): N28.9 - DISORDER OF KIDNEY AND URETER, UNSPECIFIED (4) Sepsis Code(s): A41.9 - SEPSIS, UNSPECIFIED ORGANISM Qualifiers: Sepsis type: sepsis due to unspecified organism Qualified Code(s): A41.9 - Sepsis, unspecified organism (5) Shock Code(s): R57.9 - SHOCK, UNSPECIFIED (6) Cardiac sarcoidosis Code(s): D86.85 - SARCOID MYOCARDITIS Assessment/Plan ASSESSMENT/PLAN 61 y/o man with h/o IDDM, HTN, HLD, CAD s/p PR, stents, Afib on AC s/p multiple cardioversions on dofetilide, 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 c/b systolic dysfunction (EF 30s) s/p BiVICD, who presented with weakness and confusion in setting of 2 weeks of presumed viral gastroenteritis, found to be febrile and hypotensive likely septic in nature +/- cardiogenic, also c/b ELOY likely pre-renal from decreased PO intake and concomitant hypotension CV: Shock- likely septic though cannot r/o cardiogenic component given underlying diagnoses -cardiology following -continue levophed for goal MAP > 65 -continue IVF though will be cautious given EF 35 and ELOY, will hold if UOP drops off -trend lactate, BNP -hold metoprolol, telmisartan and spironlactone -unable to obtain reliable CVP given femoral line -can trend SVO2 if concern for cardiogenic shock -could consider inotropy if concern for cardiogenic shock Cardiac Sarcoidosis c/b systolic dysfunction -continue cellcept Afib -continue dofetilide at lower dose as per cards -hold Xarelto given ELOY -continue heparin gtt for goal full therapeutic PTT CAD -follow trops -resume statin when LFTs normalize ID: Immunosuppressed pt presents with presumed viral gastroenteritis x 2 weeks now in shock likely septic (febrile, leukocytosis) presumably from GI source. CXR reported clear (unable to view image), UA 2WBC though 2+ LE. -> lab called with GPC in all blood cultures -Plan per ID -continue zosyn -will add vanco level with plan to continue given GPC's pending culture speciation -f/u speciation of GPC's -flu swab negative Renal: ELOY likely pre-renal in setting of poor PO intake and hypotension ( baseline creat 1.6); Hyponatremia likely hypovolemic hyponatremia ELOY -IVF resuscitation -strict I/Os -f/u urine studies -renally dose meds Hyponatremia -cautious correction - 12MEq in 24 hrs -if over correcting will d/c IVF or change to 1/2 NS Pulm: no active issues -cautious monitoring of respiratory status in setting of fluid resuscitation, ELOY and depressed EF Endo: DM -hold home oral agents -insulin sliding scale PPX: -Heparin gtt -GI ppx Vanna Azevedo 35 mins
[2016-05-17 21:17] LABS: URINE APPEARANCE SLCLOUDY; URINE BILIRUBIN NEGATIVE (NEGATIVE); URINE COLOR YELLOW; URINE GLUCOSE (UA) 3+ (NEGATIVE); URINE KETONE TRACE (NEGATIVE); URINE NITRITE NEGATIVE (NEGATIVE); URINE PROTEIN NEGATIVE (NEGATIVE); URINE UROBILINOGEN NEGATIVE E.U./dl (0.2-1.0)
[2016-05-17 21:19] LABS: URINE BLOOD 1+ (NEGATIVE); URINE LEUK ESTERASE 2+ (NEGATIVE)
[2016-05-17 21:20] LABS: URINE HYALINE CAST 1 /lpf; URINE RBC 1 /hpf (0-3); URINE WBC 2 /hpf (3-5)
[2016-05-17] MEDS ORDERED: HEPARIN INFUSION - 500 ML IVPB ONE ×2 (21:22→22:18)
[2016-05-17] MEDS ORDERED: ROSUVASTATIN CA 5 MG TABLET (FP) PO SCH (21:30)
[2016-05-17] MEDS ORDERED: RIVAROXABAN 20 MG TABLET PO SCH (22:00)
[2016-05-17] MEDS ORDERED: MYCOPHENOLATE MOFETIL 500 MG TABLET PO SCH (22:00)
[2016-05-17] MEDS ORDERED: DOFETILIDE 0.125 MG CAPSULE PO SCH (22:00)
[2016-05-17] MEDS ORDERED: DOFETILIDE 0.25 MG CAPSULE PO SCH (22:00)
[2016-05-17] MEDS: PIPERACILLIN/TAZOB 3.375 GM/50 ML PRE-DOCKED IVPB SCH (22:05)
[2016-05-17] MEDS: GABAPENTIN 100 MG CAPSULE (FP) PO SCH (22:06)
[2016-05-17] MEDS: CHLORHEXIDINE GLUCONATE 4% CLEANSER FOR DECOLONIZATION TP SCH (22:27)
[2016-05-17] MEDS: HEPARIN NA (PORCINE) 5,000 UNITS/ML 1ML VIAL SQ SCH (22:27)
[2016-05-17] MEDS: MYCOPHENOLATE MOFETIL 500 MG TABLET PO SCH (23:39)
[2016-05-17] MEDS: MUPIROCIN 2% TOPICAL OINTMENT FOR DECOLONIZATION NS SCH (23:40)
[2016-05-17] MEDS ORDERED: NOREPINEPHRINE BITARTRATE 4 MG/4 ML ML IV ONE (23:43)
[2016-05-18] MEDS: PIPERACILLIN/TAZOB 3.375 GM/50 ML PRE-DOCKED IVPB SCH ×3 (02:00→17:12)
[2016-05-18] MEDS ORDERED: PIPERACILLIN/TAZOB 3.375 GM 3.375 GM in DEXTROSE 5%-WATER - 50 ML IVPB SCH (02:00)
[2016-05-18 02:45] LABS: CALCIUM 7.5 mg/dL (8.5-10.1); CREATININE 1.9 mg/dL (0.7-1.3)
[2016-05-18 05:56] LABS: BASOPHIL 0.2 % (0-2.0); EOSINOPHIL 3.3 % (0-4.5); MCH 31.8 pg (25.7-33.7); MEAN CELL VOLUME 96.4 fl (80-96); MEAN PLT VOLUME 12.4 fl (7.5-11.1); NEUTROPHILS 84.9 % (42.8-82.8); PLATELET COUNT 114 K/MM3 (134-434); RDW 14.6 % (11.9-15.9); WHITE BLOOD COUNT 20.1 K/mm3 (4.0-10.0)
[2016-05-18 07:05] LABS: THYROID STIMULATING HORMONE 0.86 uIU/ml (0.358-3.74)
[2016-05-18 07:34] LABS: ALBUMIN 2.2 g/dl (3.4-5.0); BILIRUBIN,TOTAL 2.2 mg/dL (0.2-1.0); CALCIUM 7.6 mg/dL (8.5-10.1); CREATININE 1.8 mg/dL (0.7-1.3); MAGNESIUM 2.6 mg/dL (1.8-2.4); PHOSPHOROUS 3.7 mg/dL (2.5-4.9); TOT PROT 4.9 g/dl (6.4-8.2)
[2016-05-18 07:37] LABS: TROPONIN I 0.16 ng/ml (0.00-0.05)
[2016-05-18] MEDS ORDERED: HYDROCORTISONE SOD SUCCINATE 100 MG/2 ML VIAL IVPUSH STA (08:30)
--- NOTE | 2016-05-18 08:38 | PN ---
Physical Exam: SUBJECTIVE: Patient seen and examined. Feels a little better, conversational, engaging with family and staff. Muscle aches in legs. Yellow-bloody discharge from nose. OBJECTIVE: Vital Signs Period Temp Pulse Resp BP Sys/[place] Pulse Ox Last 24 Hr 97.5 F-97.9 F 60-67 18-26 79-92/47-72 100-100 GENERAL: Awake, alert. HEAD: Normal with no signs of trauma. EYES: Pupils equal, round and reactive to light, extraocular movements intact, sclera anicteric, conjunctiva clear. No ptosis. LUNGS: Breath sounds equal, clear to auscultation bilaterally. No wheezes, and no crackles. No accessory muscle use. HEART: Regular rate and rhythm, normal S1 and S2 without murmur, rub or gallop. ABDOMEN: Soft, nontender, not distended, normoactive bowel sounds, no guarding, no rebound, no masses. MUSCULOSKELETAL: Normal range of motion at all joints. No bony deformities or tenderness. No CVA tenderness. UPPER EXTREMITIES: 2+ pulses, warm, well-perfused. No cyanosis. No clubbing. Cap refill <2 seconds. No peripheral edema. LOWER EXTREMITIES: 2+ pulses, warm, well-perfused. No peripheral edema. Muscle soreness bilaterally. NEUROLOGICAL: Cranial nerves II-XII intact. Normal speech. Gait not observed. PSYCHIATRIC: Cooperative. Good eye contact. Appropriate mood and affect. SKIN: Warm, dry, normal turgor, no rashes or lesions noted. Laboratory Results - last 24 hr 05/17/16 05/17/16 05/17/16 17:50 17:50 17:50 WBC RBC Hgb Hct MCV MCHC RDW Plt Count MPV Neutrophils % Lymphocytes % Monocytes % Eosinophils % Basophils % INR 2.90 H PTT (Actin FS) Sodium 127 L Potassium 3.8 Chloride 94 L Carbon Dioxide 18 L Anion Gap 15 BUN 65 H Creatinine 1.9 H Creat Clearance w eGFR POC Glucometer Random Glucose 204 H Hemoglobin A1c % Serum Osmolality Lactic Acid Calcium 7.6 L Phosphorus 3.6 Magnesium 2.5 H Total Bilirubin AST ALT Alkaline Phosphatase Creatine Kinase Creatine Kinase Index CK-MB (CK-2) Troponin I B-Natriuretic Peptide 6459.94 H Total Protein Albumin TSH Urine Color Urine Appearance Urine pH Ur Specific [place] Urine Protein Urine Glucose (UA) Urine Clinitest Urine Ketones Urine Blood Urine Nitrite Urine Bilirubin Urine Ictotest Prot Sulfosalicylic Acd Urine Urobilinogen Ur Leukocyte Esterase Urine RBC Urine WBC Hyaline Casts Vancomycin Trough 05/17/16 05/17/16 05/17/16 17:50 17:50 17:50 WBC 15.0 H RBC 4.08 Hgb 13.0 Hct 39.7 MCV 97.2 H MCHC 32.7 RDW 15.0 Plt Count 101 L MPV 12.4 H Neutrophils % Lymphocytes % Monocytes % Eosinophils % Basophils % INR PTT (Actin FS) Sodium Potassium Chloride Carbon Dioxide Anion Gap BUN Creatinine Creat Clearance w eGFR POC Glucometer Random Glucose Hemoglobin A1c % Serum Osmolality Lactic Acid 1.951 Calcium Phosphorus Magnesium Total Bilirubin AST ALT Alkaline Phosphatase Creatine Kinase 217 Creatine Kinase Index 1.8 CK-MB (CK-2) 3.996 H Troponin I B-Natriuretic Peptide Total Protein Albumin TSH Urine Color Urine Appearance Urine pH Ur Specific [place] Urine Protein Urine Glucose (UA) Urine Clinitest Urine Ketones Urine Blood Urine Nitrite Urine Bilirubin Urine Ictotest Prot Sulfosalicylic Acd Urine Urobilinogen Ur Leukocyte Esterase Urine RBC Urine WBC Hyaline Casts Vancomycin Trough 05/17/16 05/17/16 05/17/16 17:50 19:33 21:00 WBC RBC Hgb Hct MCV MCHC RDW Plt Count MPV Neutrophils % Lymphocytes % Monocytes % Eosinophils % Basophils % INR PTT (Actin FS) 51.6 H Sodium Potassium Chloride Carbon Dioxide Anion Gap BUN Creatinine Creat Clearance w eGFR POC Glucometer Random Glucose Hemoglobin A1c % Serum Osmolality 284 Lactic Acid Calcium Phosphorus Magnesium Total Bilirubin AST ALT Alkaline Phosphatase Creatine Kinase Creatine Kinase Index CK-MB (CK-2) Troponin I B-Natriuretic Peptide Total Protein Albumin TSH Urine Color Cancelled Urine Appearance Cancelled Urine pH Cancelled Ur Specific [place] Cancelled Urine Protein Cancelled Urine Glucose (UA) Cancelled Urine Clinitest Cancelled Urine Ketones Cancelled Urine Blood Cancelled Urine Nitrite Cancelled Urine Bilirubin Cancelled Urine Ictotest Cancelled Prot Sulfosalicylic Acd Cancelled Urine Urobilinogen Cancelled Ur Leukocyte Esterase Cancelled Urine RBC Urine WBC Hyaline Casts Vancomycin Trough 05/17/16 05/17/16 05/18/16 21:09 22:01 01:30 WBC RBC Hgb Hct MCV MCHC RDW Plt Count MPV Neutrophils % Lymphocytes % Monocytes % Eosinophils % Basophils % INR PTT (Actin FS) 83.4 H D Sodium Potassium Chloride Carbon Dioxide Anion Gap BUN Creatinine Creat Clearance w eGFR POC Glucometer [phone] Random Glucose Hemoglobin A1c % Serum Osmolality Lactic Acid Calcium Phosphorus Magnesium Total Bilirubin AST ALT Alkaline Phosphatase Creatine Kinase Creatine Kinase Index CK-MB (CK-2) Troponin I B-Natriuretic Peptide Total Protein Albumin TSH Urine Color Yellow Urine Appearance Slcloudy Urine pH 5.0 Ur Specific [place] 1.020 Urine Protein Negative Urine Glucose (UA) 3+ H Urine Clinitest Urine Ketones Trace H Urine Blood 1+ H Urine Nitrite Negative Urine Bilirubin Negative Urine Ictotest Prot Sulfosalicylic Acd Urine Urobilinogen Negative Ur Leukocyte Esterase 2+ H Urine RBC 1 Urine WBC 2 Hyaline Casts 1 Vancomycin Trough 05/18/16 05/18/16 05/18/16 01:40 05:20 05:20 WBC 20.1 H D RBC 4.05 Hgb 12.9 Hct 39.0 MCV 96.4 H MCHC 33.0 RDW 14.6 Plt Count 114 L MPV 12.4 H Neutrophils % 84.9 H Lymphocytes % 2.8 L Monocytes % 8.8 Eosinophils % 3.3 Basophils % 0.2 INR PTT (Actin FS) Sodium 130 L 130 L Potassium 3.9 3.9 Chloride 96 L 96 L Carbon Dioxide 16 L 15 L Anion Gap 18 H 19 H BUN 59 H 58 H Creatinine 1.9 H 1.8 H Creat Clearance w eGFR 38.30 POC Glucometer Random Glucose 200 H 197 H Hemoglobin A1c % Serum Osmolality Lactic Acid Calcium 7.5 L 7.6 L Phosphorus 3.7 Magnesium 2.6 H Total Bilirubin 2.2 H AST 30 ALT 21 Alkaline Phosphatase 94 Creatine Kinase 88 Creatine Kinase Index CK-MB (CK-2) Troponin I 0.16 H B-Natriuretic Peptide Total Protein 4.9 L Albumin 2.2 L TSH 0.86 Urine Color Urine Appearance Urine pH Ur Specific [place] Urine Protein Urine Glucose (UA) Urine Clinitest Urine Ketones Urine Blood Urine Nitrite Urine Bilirubin Urine Ictotest Prot Sulfosalicylic Acd Urine Urobilinogen Ur Leukocyte Esterase Urine RBC Urine WBC Hyaline Casts Vancomycin Trough 05/18/16 05/18/16 05/18/16 05:20 05:20 05:30 WBC RBC Hgb Hct MCV MCHC RDW Plt Count MPV Neutrophils % Lymphocytes % Monocytes % Eosinophils % Basophils % INR PTT (Actin FS) Sodium Potassium Chloride Carbon Dioxide Anion Gap BUN Creatinine Creat Clearance w eGFR POC Glucometer 222.99242 Random Glucose Hemoglobin A1c % 8.0 H Serum Osmolality Lactic Acid 1.844 Calcium Phosphorus Magnesium Total Bilirubin AST ALT Alkaline Phosphatase Creatine Kinase Creatine Kinase Index CK-MB (CK-2) Troponin I B-Natriuretic Peptide Total Protein Albumin TSH Urine Color Urine Appearance Urine pH Ur Specific [place] Urine Protein Urine Glucose (UA) Urine Clinitest Urine Ketones Urine Blood Urine Nitrite Urine Bilirubin Urine Ictotest Prot Sulfosalicylic Acd Urine Urobilinogen Ur Leukocyte Esterase Urine RBC Urine WBC Hyaline Casts Vancomycin Trough Active Medications Generic Name Dose Route Start Last Admin Trade Name Freq PRN Reason Stop Dose Admin Allopurinol 300 mg 05/18/16 10:00 Zyloprim - PO DAILY ESTELA Chlorhexidine Gluconate 1 applic 05/17/16 22:00 05/17/16 22:27 Hibiclens For Decolonization - TP 1 applic HS ESTELA Administration Dofetilide 0.125 mg 05/18/16 10:00 Tikosyn (Restricted To Cardiology) - PO BID ESTELA Gabapentin 100 mg 05/17/16 22:00 05/17/16 22:06 Neurontin - PO 100 mg HS ESTELA Administration Heparin Sodium (Porcine) 1,000 unit 05/17/16 20:23 Heparin - IVPUSH PRN PRN Heparin Heparin Sodium (Porcine) 5,000 unit 05/17/16 20:23 Heparin - IVPUSH PRN PRN Heparin Heparin Sodium (Porcine) 5,000 unit 05/17/16 22:00 05/17/16 22:27 Heparin - SQ Not Given BID ESTELA Hydrocortisone Sodium Succinate 100 mg 05/18/16 08:30 Solu-Cortef - IVPUSH 05/18/16 08:31 Q8H STA Norepinephrine Bitartrate 8, 500 mls @ 9.84 mls/hr 05/17/16 15:45 05/17/16 19: 00 000 mcg/ Dextrose IV Not Given ASDIR ESTELA Protocol 0.03 MCG/KG/MIN Heparin Sodium (Porcine) 25, 500 mls @ 20 mls/hr 05/17/16 20:30 05/18/16 03:00 000 unit/ Sodium Chloride IV 950 unit/hr TITR ESTELA Titration Protocol 1,000 UNIT/HR Famotidine/Sodium Chloride 50 mls @ 100 mls/hr 05/18/16 10:00 Pepcid 20 Mg Premixed Ivpb - IVPB DAILY [facility] Insulin Aspart 1 vial 05/18/16 11:00 Novolog Vial Sliding Scale - SQ ACHS [facility] Protocol Mupirocin 1 applic 05/17/16 22:00 05/17/16 23:40 Bactroban Ointment (For Decolonization) - NS 05/22/16 21:59 1 applic BID ESTELA Administration Mycophenolate Mofetil 1,000 mg 05/17/16 22:00 05/17/16 23:39 Cellcept - PO 1,000 mg HS ESTELA Administration Mycophenolate Mofetil 1,500 mg 05/18/16 10:00 Cellcept - PO DAILY ESTELA Piperacillin Sod/Tazobactam Sod 3.375 gm 05/17/16 20:30 05/18/16 02:00 Zosyn 3.375gm Ivpb (Pre-Docked) IVPB 3.375 gm Q8H-IV ESTELA Administration Rosuvastatin Calcium 5 mg 05/17/16 21:30 05/17/16 23:30 Crestor - PO 5 mg Q48H ESTELA Administration Microbiology 05/17/16 12:00 Blood - Peripheral Venous Blood Culture - Preliminary Pending Organism 05/17/16 11:54 Blood - Peripheral Venous Blood Culture - Preliminary Pending Organism 05/17/16 12:51 Nasopharyngeal Swab Influenza Types A,B Antigen (RENEE) - Final - Negative 05/17/16 12:51 Nasopharyngeal Swab - Final ASSESSMENT/PLAN: 61 year-old man with a PMH of HTN, HLD, CAD s/p ME s/p stents s/p PPM/AICD, 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 Admitted for septic shock. Septic shock --presented with fever, hypotension, leukocytosis in the setting of a viral syndrome that started about two weeks ago; immunosupressed patient --2/4 Blood cultures: 2/2 positive for GPC in clusters --2/5 Blood cultures: drawn off new RIJ, pending --continue Vanc, Zosyn --on levo 15, vaso 4; MAP goal >65 --CVP 9, give fluids to goal CVP 12-14; if remains hypotensive consider dobutamine provided CVP >10 --repeat blood cultures ordered for am --re-ordered pneumonia urine antigens Lactic acidosis, resolved --wnl Decompensated systolic heart failure w/ BiVICD --per patient, EF 33-39% --BNP 10,080 --hold diuretics --troponin 0.21-->0.16 --ROLDAN tomorrow morning --will likely need removal of PPM/AICD; discussed with Dr. Vang and Dr. Larsen; patient needs transfer to [facility] CAD s/p stent x 1 --continue dofetilide at lower dose 0.125mg BID --hold Toprol XL for now Acute kidney injury --Cr 2.1 on admission, now 1.8, baseline 1.6 --making good urine, 130cc's per hour Afib/Aflutter --s/p cardioversion x 8 --reduced dofetilide dose to .125 mg in light of renal function, but not in stock per pharmacy. Can resume .250 mg BID once GFR > 40 (likely tomorrow since currently GFR 38). 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; + PET scan for sarcoid two years ago (no pulm manifestations); initiated prednisone treatment in October 2015 but was looking for alternative so started cellcept in December 2015 and transitioned off prednisone recently this April 2016 --continue mycophenalate Hyponatremia --improving Na 121-->127 --mental confusion improved Hypertension --hold home Telmisartan, spironolactone, Lasix Muscle soreness b/l LE --CPK mildly elevated and trending down --continue IV fluids Sinusitis --bloody discharge from nose, patient says chronic --continue Zosyn AODM --hold home oral anti-glycemic agents --Novolog sliding scale coverage Hyperlipidemia --continue Crestor DVT prophylaxis: heparin drip Dispo: Need to reach out to continues to require ICU care. Full Code. Blind Slat Stapling Machine Operator: Dr. Ciera Alonzo [phone]; called and LM 05/18 @ 5pm Dr. Mickey Hudson: . Called and LM 5:50pm. Got a call back from Dr. Bobby Vang, he will talk to Dr. Hudson. Visit type - Emergency Visit Emergency Visit: Yes ED Registration Date: 05/17/16 Care time: The patient presented to the Emergency Department on the above date and was hospitalized for further evaluation of their emergent condition. - New Patient This patient is new to me today: No - Critical Care Critical Care patient: Yes Total Critical Care Time (in minutes): 85 Critical Care Statement: The care of this patient involved high complexity decision making to prevent further life threatening deterioration of the patient 's condition and/or to evalute & treat vital organ system(s) failure or risk of failure.
--- NOTE | 2016-05-18 08:46 | PN ---
Progress Note (short form) - Note Progress Note: PULMONARY / CRITICAL CARE MEDICINE Pt seen and examined in the ICU EVENTS: Net positive 4L, remains on Levo 7mcg/min, blood cultures growing GPCs, states he feels better Current Medications Allopurinol (Zyloprim -) 300 mg PO DAILY ESTELA Chlorhexidine Gluconate (Hibiclens For Decolonization -) 1 applic TP HS [facility] Last Admin: 05/17/16 22:27 Dose: 1 applic Dofetilide (Tikosyn (Restricted To Cardiology) -) 0.125 mg PO BID ESTELA Gabapentin (Neurontin -) 100 mg PO HS ESTELA Last Admin: 05/17/16 22:06 Dose: 100 mg Heparin Sodium (Porcine) (Heparin -) 1,000 unit IVPUSH PRN PRN PRN Reason: Heparin Heparin Sodium (Porcine) (Heparin -) 5,000 unit IVPUSH PRN PRN PRN Reason: Heparin Heparin Sodium (Porcine) (Heparin -) 5,000 unit SQ BID ESTELA Last Admin: 05/17/16 22:27 Dose: Not Given Hydrocortisone Sodium Succinate (Solu-Cortef -) 100 mg IVPUSH Q8H STA Stop: 05/18/16 08:31 Norepinephrine Bitartrate 8, (000 mcg/ Dextrose) 500 mls @ 9.84 mls/hr IV ASDIR ESTELA; 0.03 MCG/KG/MIN PRN Reason: Protocol Last Admin: 05/17/16 19:00 Dose: Not Given Heparin Sodium (Porcine) 25, (000 unit/ Sodium Chloride) 500 mls @ 20 mls/hr IV TITR ESTELA; 1,000 UNIT/HR PRN Reason: Protocol Last Titration: 05/18/16 03:00 Dose: 950 unit/hr Famotidine/Sodium Chloride (Pepcid 20 Mg Premixed Ivpb -) 50 mls @ 100 mls/hr IVPB DAILY ESTELA Insulin Aspart (Novolog Vial Sliding Scale -) 1 vial SQ ACHS ESTELA PRN Reason: Protocol Mupirocin (Bactroban Ointment (For Decolonization) -) 1 applic NS BID ESTELA Stop: 05/22/16 21:59 Last Admin: 05/17/16 23:40 Dose: 1 applic Mycophenolate Mofetil (Cellcept -) 1,000 mg PO HS [facility] Last Admin: 05/17/16 23:39 Dose: 1,000 mg Mycophenolate Mofetil (Cellcept -) 1,500 mg PO DAILY [facility] Piperacillin Sod/Tazobactam Sod (Zosyn 3.375gm Ivpb (Pre-Docked)) 3.375 gm IVPB Q8H-IV ESTELA Last Admin: 05/18/16 02:00 Dose: 3.375 gm Rosuvastatin Calcium (Crestor -) 5 mg PO Q48H ESTELA Last Admin: 05/17/16 23:30 Dose: 5 mg Vital Signs Temp 97.9 F 05/18/16 04:00 Pulse 66 05/18/16 06:00 Resp 26 H 05/18/16 06:00 BP 84/55 05/18/16 06:00 Pulse Ox 100 05/17/16 20:59 Intake & Output 05/17/16 05/18/16 05/18/16 18:59 06:59 18:59 Intake Total 2350 3043 Output Total 1100 Balance 2350 1943 Weight 87.543 kg 91.824 kg Intake: IV 2350 1943 Normal Saline - 1,000 ml 350 1200 @ 100 mls/hr IV ASDIR STA Rx#:[id number] Normal Saline - 250 ml @ 250 250 mls/hr IV ASDIR STA Rx#:[id number] Normal Saline - 250 ml @ 250 250 mls/hr IV ASDIR STA Rx#:[id number] Normal Saline - 1,000 ml 1500 @ 1000 mls/hr IV ASDIR STA Rx#:[id number] Levophed - 4,000 Mcg In 528 D5w - 496 ml @ 5 MCG/MIN 37.5 mls/hr IV TITR ONE Rx#:[id number] Heparin - 25,000 Unit In 215 Normal Saline - 495 ml @ 1,000 UNIT/HR 20 mls/hr IV TITR ESTELA Rx#: [id number] IVPB 100 Oral 1000 Output: Urine 1100 [place] 1100 Other: Voiding Method Urinal External Catheter # Unmeasured Voids Void 1 Height 5 ft 11 in Body Mass Index (BMI) 26.9 Weight Measurement Method Built in [facility] Weight Measurement Method Est/Stated by Patient EXAM: Neuro: alert HENNT: PERRL Lungs: clear Heart: RRR Abd: obese, soft, non-tender Ext: LE edema, good pulses, hot Skin: hot dry CBC, BMP 05/18/16 05:20 05/18/16 05:20 Microbiology 05/17/16 12:51 Influenza Types A,B Antigen (RENEE) - Final Nasopharyngeal Swab - Final Blood 05/17: GPCs all 4 bottles CXR: clear lungs ASSESSMENT/PLAN: Septic +/- cardiogenic shock GPC bacteremia Cardiac Sarcoidosis Cardiomyopathy ELOY - improving Hyponatremia DM CAD AF HTN -Continue Vanc/Zosyn pending ID consult and cultures - repeat blood cultures today -d/c standing fluid - now net positive 4L -Cardiology follow up -Will move TLC to upper body to check CVP and guide fluid resuscitation -TTE pending -Heparin drip for full AC -Hyponatremia is likely from cardiogenic shock - free water restriction 1L/day -Stress steroids (Hydrocort 100q8) and wean when shock improves -Insulin -Rheum follow up - would probably hold Cellcept while actively infected -GI PPx Critically Ill 45min not including procedures Thank you for this interesting consult Kirill Alvarez Pulm / Critical Care MUSEUM DIRECTOR
[2016-05-18] MEDS ORDERED: SODIUM BICARBONATE 8.4% 50 MEQ/50 ML VIAL ONE (09:05)
[2016-05-18] MEDS ORDERED: LIDOCAINE HCL 1%, 10 MG/ML (20ML VIAL) ONE (09:07)
[2016-05-18] MEDS ORDERED: PT OWN MED DRAWER 7, Y5N ONE (09:09)
[2016-05-18] MEDS: ALLOPURINOL 300 MG TABLET (FP) PO SCH (09:13)
[2016-05-18] MEDS: FAMOTIDINE 20 MG/50 ML IVPB 50 ML IVPB SCH (09:13)
[2016-05-18] MEDS: MYCOPHENOLATE MOFETIL 250 MG CAPSULE PO SCH (09:14)
[2016-05-18] MEDS: MUPIROCIN 2% TOPICAL OINTMENT FOR DECOLONIZATION NS SCH ×2 (09:16→21:19)
[2016-05-18] MEDS ORDERED: LIDOCAINE HCL 1%, 10 MG/ML (20ML VIAL) NR ONE (09:30)
[2016-05-18] MEDS ORDERED: DOFETILIDE 0.125 MG CAPSULE PO SCH ×2 (10:00)
[2016-05-18] MEDS: HEPARIN NA (PORCINE) 5,000 UNITS/ML 1ML VIAL SQ SCH ×2 (10:18→21:13)
[2016-05-18] MEDS ORDERED: LACTATED RINGERS SOLUTION 1,000 ML IV STA (10:50)
--- NOTE | 2016-05-18 10:55 | PROC ---
Central Line Insertion Indication: CVP Monitoring, Sepsis, Vasopressor Risks and Benefits Explained: Yes Consent on Chart: Yes Central Line: Triple Lumen Catheter Anesthesia: 1% Lidocaine Sterile Technique: Yes Ultrasound Guided Assistance: Yes Position: Right Internal Jugular Post Insertion: Yes: Bilateral Breath Sounds, Bilateral Chest Expansion, Chest X-Ray Ordered Sterile Dressing Applied: Yes
--- NOTE | 2016-05-18 11:34 | PN ---
Progress Note (short form) - Note Progress Note: CC: hypotension, sarcoidosis S: Net positive 4L, remains on Levo just increased to 10 mcg/min, blood cultures growing GPCs, TLC placed in IJ. CVP 7-9. + tired. + weakness/confusion /difficulty moving ext. + joint pain. No cp, palps, sob, orthopnea (but feels better on oxygen). Current Medications Allopurinol (Zyloprim -) 300 mg PO DAILY [facility] Last Admin: 05/18/16 09:13 Dose: 300 mg Chlorhexidine Gluconate (Hibiclens For Decolonization -) 1 applic TP HS [facility] Last Admin: 05/17/16 22:27 Dose: 1 applic Dofetilide (Tikosyn (Restricted To Cardiology) -) 0.125 mg PO BID ESTELA Gabapentin (Neurontin -) 100 mg PO HS [facility] Last Admin: 05/17/16 22:06 Dose: 100 mg Heparin Sodium (Porcine) (Heparin -) 1,000 unit IVPUSH PRN PRN PRN Reason: Heparin Heparin Sodium (Porcine) (Heparin -) 5,000 unit IVPUSH PRN PRN PRN Reason: Heparin Heparin Sodium (Porcine) (Heparin -) 5,000 unit SQ BID [facility] Last Admin: 05/18/16 10:18 Dose: Not Given Norepinephrine Bitartrate 8, (000 mcg/ Dextrose) 500 mls @ 9.84 mls/hr IV ASDIR ESTELA; 0.03 MCG/KG/MIN PRN Reason: Protocol Last Admin: 05/17/16 19:00 Dose: Not Given Heparin Sodium (Porcine) 25, (000 unit/ Sodium Chloride) 500 mls @ 20 mls/hr IV TITR ESTELA; 1,000 UNIT/HR PRN Reason: Protocol Last Titration: 05/18/16 03:00 Dose: 950 unit/hr Famotidine/Sodium Chloride (Pepcid 20 Mg Premixed Ivpb -) 50 mls @ 100 mls/hr IVPB DAILY [facility] Last Admin: 05/18/16 09:13 Dose: 100 mls/hr Lactated Ringer's (Lactated Ringers Solution) 1,000 mls @ 500 mls/hr IV ONCE STA Stop: 05/18/16 12:49 Last Admin: 05/18/16 11:00 Dose: 500 mls/hr Insulin Aspart (Novolog Vial Sliding Scale -) 1 vial SQ ACHS ESTELA PRN Reason: Protocol Last Admin: 05/18/16 12:34 Dose: 6 units Mupirocin (Bactroban Ointment (For Decolonization) -) 1 applic NS BID ESTELA Stop: 05/22/16 21:59 Last Admin: 05/18/16 09:16 Dose: 1 applic Mycophenolate Mofetil (Cellcept -) 1,000 mg PO HS ESTELA Last Admin: 05/17/16 23:39 Dose: 1,000 mg Mycophenolate Mofetil (Cellcept -) 1,500 mg PO DAILY ESTELA Last Admin: 05/18/16 09:14 Dose: 1,500 mg Piperacillin Sod/Tazobactam Sod (Zosyn 3.375gm Ivpb (Pre-Docked)) 3.375 gm IVPB Q8H-IV ESTELA Last Admin: 05/18/16 09:13 Dose: 3.375 gm Rosuvastatin Calcium (Crestor -) 5 mg PO Q48H ESTELA Last Admin: 05/17/16 23:30 Dose: 5 mg Vital Signs Period Temp Pulse Resp BP Sys/[place] Pulse Ox Last 24 Hr 97 F-101.8 F 60-68 18-26 72-102/42-72 98-100 Intake & Output 05/16/16 05/17/16 05/18/16 05/19/16 07:59 07:59 07:59 07:59 Intake Total 5393 Output Total 1100 Balance 4293 Weight 202 lb 7 oz NAC, calm JVD flat, neck supple RRR nl s1, s2 no m/r/g bibasilar rales, nl effort + bs soft nt nd ext without e/c/c + dp/pt aaox3 no jaundice, diaphoresis CBC, BMP 05/18/16 05:20 05/18/16 05:20 Laboratory Tests 05/17/16 05/17/16 05/17/16 11:54 11:54 12:50 PTT (Actin FS) Sodium 121 L* Creatinine 2.1 H Hemoglobin A1c % Magnesium Total Bilirubin 2.5 H AST ALT Alkaline Phosphatase Creatine Kinase 276 H Creatine Kinase Index CK-MB (CK-2) 5.4 H CK-MB (CK-2) Rel Index 2.0 Troponin I 0.21 B-Natriuretic Peptide 49434.75 H Albumin TSH 05/17/16 05/17/16 05/17/16 17:50 17:50 17:50 PTT (Actin FS) Sodium 127 L Creatinine 1.9 H Hemoglobin A1c % Magnesium Total Bilirubin AST ALT Alkaline Phosphatase Creatine Kinase 217 Creatine Kinase Index 1.8 CK-MB (CK-2) 3.996 H CK-MB (CK-2) Rel Index Troponin I B-Natriuretic Peptide 6459.94 H Albumin TSH 05/18/16 05/18/16 05/18/16 01:30 01:40 05:20 PTT (Actin FS) 83.4 H D Sodium 130 L Creatinine 1.9 H Hemoglobin A1c % Magnesium 2.6 H Total Bilirubin 2.2 H AST 30 ALT 21 Alkaline Phosphatase 94 Creatine Kinase Creatine Kinase Index CK-MB (CK-2) CK-MB (CK-2) Rel Index Troponin I 0.16 H B-Natriuretic Peptide Albumin 2.2 L TSH 0.86 05/18/16 05:20 PTT (Actin FS) Sodium Creatinine Hemoglobin A1c % 8.0 H Magnesium Total Bilirubin AST ALT Alkaline Phosphatase Creatine Kinase Creatine Kinase Index CK-MB (CK-2) CK-MB (CK-2) Rel Index Troponin I B-Natriuretic Peptide Albumin TSH EKG: Biventricular paced rhythm. Underlying atrial tachycardia/flutter. tele: Biv paced CXR: clear lung ruiz 61 yo with h/o cardiac sarcoidosis with systolic dysfunction (EF 33 or 39% 2015), BiVICD, CAD s/p [place] and stent x 1, atrial flutter s/p cardioversion 8 on dofetilide HTN, HLD, IDDM presents with weakness, confusion. Hypotension/sepsis - mgm't per pmd/critical care - Do not think patient is currently in cardiogenic shock. CVP 7-9. Hyponatremia improving with IVF. Con't IVF as long as CVP remains < 14. Maintain uop. Titrate norepi to MAP > 65 and systolic bp > 95. (Manual cuff bp measured by me at 80/48) If additional pressor needs to be added, can add dobutamine as long as CVP is maintained > 10. - May need PPM/ICD adjustment to augment heart rate, but will hold off for now since patient clinically improving. cardiac sarcoid cardiomyopathy - diagnosed with cardiomyopathy 5 years ago. + PET scan for sarcoid two years ago. (no pulm manifestations) Initiated prednisone treatment in October, but was looking for alternative so started cellcept in december and transitioned off prednisone recently this April. - Ok to continue IVF/pressors as needed for resuscitation as mentioned above. At baseline patient's systolic bp typically 100's-110's. - s/p BIV ICD (no h/o ventricular arrhythmias). Per patient most recent EF was either 33 or 39% - holding metoprolol, telmisartan and spironlactone while hypotensive - correct electrolyte abnormalities. - recommend rheumatology consult. aflutter - currently rate controlled with BiV pacing - Because of acute renal failure, transitioned from xarelto to heparin drip. - Reduced dofetilide dose to .125 mg in light of renal function, but not in stock per pharmacy. Can resume .250 mg BID once GFR > 40 (likely tomorrow since currently GFR 38). CAD - no anginal symptoms. troponins neg x 1. con't HEVER. - con't AC. (not on ASA, defer to primary ladler). ok to hold statin until liver function normalizes. statin resumed. cct: > 35 min
[2016-05-18] MEDS: INSULIN SLIDING SCALE (NOVOLOG) 1 VIAL SQ SCH ×3 (12:34→22:10)
--- NOTE | 2016-05-18 13:02 | EKG ---
Test Reason : Blood Pressure : / mmHG Vent. Rate : 063 BPM Atrial Rate : 076 BPM P-R Int : 000 ms QRS Dur : 182 ms QT Int : 540 ms P-R-T Axes : 000 -74 -12 degrees QTc Int : 552 ms Ventricular-paced rhythm Biventricular pacemaker detected Underlying ATRIAL TACHYCARDIA ABNORMAL ECG WHEN COMPARED WITH ECG OF 17-MAY-2016 11:46, NO SIGNIFICANT CHANGE WAS FOUND Confirmed by PEMA CHINO MD ([id number]) on 05/18/2016 1:02:06 PM Referred By: Zurdo STOKES Confirmed By:PEMA CHINO MD
[2016-05-18] MEDS ORDERED: VASOPRESSIN 50 UNITS in SODIUM CHLORIDE 97.5 ML IVPB SCH (14:00)
[2016-05-18] MEDS: DOFETILIDE 0.125 MG CAPSULE PO SCH ×2 (14:15→21:14)
[2016-05-18] MEDS ORDERED: NOREPINEPHRINE BITARTRATE 4 MG/4 ML ML IV ONE (16:02)
[2016-05-18] MEDS ORDERED: VANCOMYCIN 1,250 MG in DEXTROSE 5%-WATER - 250 ML IVPB SCH (16:30)
[2016-05-18] MEDS: NOREPINEPHRINE BITARTRATE 8,000 MCG in DEXTROSE 5%-WATER - 492 ML IV SCH (16:31)
--- NOTE | 2016-05-18 16:45 | PN ---
Progress Note, Physician History of Present Illness: patient evaluated clinically looks better,but not able to maintain his blood pressure now he is on two pressors patient is awake and alert - Current Medication List Current Medications: Active Medications Allopurinol (Zyloprim -) 300 mg PO DAILY [facility] Last Admin: 05/18/16 09:13 Dose: 300 mg Chlorhexidine Gluconate (Hibiclens For Decolonization -) 1 applic TP HS [facility] Last Admin: 05/17/16 22:27 Dose: 1 applic Dofetilide (Tikosyn (Restricted To Cardiology) -) 0.125 mg PO BID [facility] Last Admin: 05/18/16 14:15 Dose: 0.125 mg Gabapentin (Neurontin -) 100 mg PO HS [facility] Last Admin: 05/17/16 22:06 Dose: 100 mg Heparin Sodium (Porcine) (Heparin -) 1,000 unit IVPUSH PRN PRN PRN Reason: Heparin Heparin Sodium (Porcine) (Heparin -) 5,000 unit IVPUSH PRN PRN PRN Reason: Heparin Heparin Sodium (Porcine) (Heparin -) 5,000 unit SQ BID [facility] Last Admin: 05/18/16 10:18 Dose: Not Given Norepinephrine Bitartrate 8, (000 mcg/ Dextrose) 500 mls @ 9.84 mls/hr IV ASDIR ESTELA; 0.03 MCG/KG/MIN PRN Reason: Protocol Last Admin: 05/18/16 16:31 Dose: 56 mls/hr Heparin Sodium (Porcine) 25, (000 unit/ Sodium Chloride) 500 mls @ 20 mls/hr IV TITR ESTELA; 1,000 UNIT/HR PRN Reason: Protocol Last Titration: 05/18/16 03:00 Dose: 950 unit/hr Famotidine/Sodium Chloride (Pepcid 20 Mg Premixed Ivpb -) 50 mls @ 100 mls/hr IVPB DAILY [facility] Last Admin: 05/18/16 09:13 Dose: 100 mls/hr Vasopressin 50 units/ Sodium (Chloride) 100 mls @ 4 mls/hr IVPB ASDIR ESTELA; 2 UNITS/HR PRN Reason: Protocol Last Admin: 05/18/16 14:40 Dose: 4 mls/hr Vancomycin HCl 1,250 mg/ (Dextrose) 250 mls @ 166.667 mls/hr IVPB DAILY@1630 [facility] Last Admin: 05/18/16 16:34 Dose: 166.667 mls/hr Insulin Aspart (Novolog Vial Sliding Scale -) 1 vial SQ ACHS [facility] PRN Reason: Protocol Last Admin: 05/18/16 12:34 Dose: 6 units Mupirocin (Bactroban Ointment (For Decolonization) -) 1 applic NS BID [facility] Stop: 05/22/16 21:59 Last Admin: 05/18/16 09:16 Dose: 1 applic Mycophenolate Mofetil (Cellcept -) 1,000 mg PO HS [facility] Last Admin: 05/17/16 23:39 Dose: 1,000 mg Mycophenolate Mofetil (Cellcept -) 1,500 mg PO DAILY [facility] Last Admin: 05/18/16 09:14 Dose: 1,500 mg Piperacillin Sod/Tazobactam Sod (Zosyn 3.375gm Ivpb (Pre-Docked)) 3.375 gm IVPB Q8H-IV [facility] Last Admin: 05/18/16 09:13 Dose: 3.375 gm Rosuvastatin Calcium (Crestor -) 5 mg PO Q48H [facility] Last Admin: 05/17/16 23:30 Dose: 5 mg - Objective Vital Signs: Vital Signs Temperature 97.8 F 05/18/16 14:00 Pulse Rate 60 05/18/16 16:31 Respiratory Rate 18 05/18/16 14:00 Blood Pressure 114/74 05/18/16 16:31 O2 Sat by Pulse Oximetry (%) 100 05/18/16 09:00 Constitutional: Yes: Calm, Mild Distress, Other Eyes: Yes: Conjunctiva Clear HENT: Yes: Atraumatic Neck: Yes: Supple Cardiovascular: Yes: Regular Rate and Rhythm, Tachycardia Respiratory: Yes: Regular, Rhonchi Gastrointestinal: Yes: Normal Bowel Sounds, Soft Musculoskeletal: Yes: WNL Extremities: Yes: Other (swelling at the ankle joint) Integumentary: Yes: WNL Neurological: Yes: Alert, Oriented Psychiatric: Yes: Alert Labs: CBC, BMP 05/18/16 05:20 05/18/16 05:20 INR, PTT INR 2.90 (0.82-1.09) H 05/17/16 17:50 Assessment/Plan after evaulating this patient ,i can say that this patient is in very critical condition patient is growin all bottles gm positive cocci in clusters i ahve a strong suspicion that this is staph Problem List - Problems (1) Dehydration Code(s): E86.0 - DEHYDRATION (2) Hyponatremia Code(s): E87.1 - HYPO-OSMOLALITY AND HYPONATREMIA (3) Renal insufficiency Code(s): N28.9 - DISORDER OF KIDNEY AND URETER, UNSPECIFIED (4) Sepsis Code(s): A41.9 - SEPSIS, UNSPECIFIED ORGANISM Qualifiers: Sepsis type: sepsis due to unspecified organism Qualified Code(s): A41.9 - Sepsis, unspecified organism (5) Shock Code(s): R57.9 - SHOCK, UNSPECIFIED (6) Cardiac sarcoidosis Code(s): D86.85 - SARCOID MYOCARDITIS gm positive bacteremia septic shock plan continue abx aggressive hydration his positive blood cx change the situation completely if patient has staph--his pacemaker including the lead need to come out await cx report from the line will need ROLDAN stat repeat blood cx to be followed will send blood cx again tomorrow if there is any issues with mgmt of the patient he will benefit from transfer to tertiary care cassyet[place] is very critical needs aggressive treatment cc time 50 min
[2016-05-18] MEDS ORDERED: SODIUM CHLORIDE 1,000 ML IV STA (17:00)
[2016-05-18] MEDS ORDERED: SODIUM CHLORIDE 500 ML IV STA (17:01)
[2016-05-18] MEDS ORDERED: SODIUM CHLORIDE 1,000 ML IV SCH (17:15)
[2016-05-18 17:53] LABS: ARTERIAL BLD GAS O2 SATURATION 98.4 % (90-98.9); ARTERIAL BLOOD GAS BASE EXCESS -12.7 meq/l (-2-2); ARTERIAL BLOOD GAS pH 7.33 (7.35-7.45)
[2016-05-18 17:54] LABS: ALLENS TEST POSITIVE; ART PUNCT SITE LEFT RADIAL; LPM/O2% 2; PT. ON O2? YES; TYPE OF O2 N/C
[2016-05-18] MEDS ORDERED: SODIUM CHLORIDE 500 ML IV ONE (18:00)
[2016-05-18] MEDS: SODIUM CHLORIDE 1,000 ML IV SCH (18:19)
[2016-05-18 19:08] LABS: CALCIUM 7.5 mg/dL (8.5-10.1); CREATININE 1.5 mg/dL (0.7-1.3)
[2016-05-18 19:46] LABS: URINE APPEARANCE SLCLOUDY; URINE BILIRUBIN NEGATIVE (NEGATIVE); URINE COLOR LTYELLOW; URINE GLUCOSE (UA) 3+ (NEGATIVE); URINE KETONE 1+ (NEGATIVE); URINE LEUK ESTERASE NEGATIVE (NEGATIVE); URINE NITRITE NEGATIVE (NEGATIVE); URINE PROTEIN NEGATIVE (NEGATIVE); URINE UROBILINOGEN NEGATIVE E.U./dl (0.2-1.0)
[2016-05-18 19:50] LABS: URINE BLOOD 3+ (NEGATIVE)
[2016-05-18 19:52] LABS: URINE RBC 194 /hpf (0-3); URINE WBC 6 /hpf (3-5)
[2016-05-18] MEDS: MYCOPHENOLATE MOFETIL 500 MG TABLET PO SCH (21:07)
[2016-05-18] MEDS: GABAPENTIN 100 MG CAPSULE (FP) PO SCH (21:13)
[2016-05-18] MEDS: CHLORHEXIDINE GLUCONATE 4% CLEANSER FOR DECOLONIZATION TP SCH (21:19)
--- NOTE | 2016-05-18 22:52 | HOSP ---
Subjective - Review of Symptoms Events since last encounter: Hospitalist Encounter After sign out from JULIUS Pantoja- pending transfer to [facility] Patient assessed at bedside, patient is in agreement with pending transfer. See PE Call placed to [place] [facility], spoke with Ciera Awaiting call back regarding Transfer 19:57- Spoke with Ciera from the Transfer Line, discussed case with Dr. Faraz Mendoza, CCU Attending from [facility] who accepted the patient. Will be notified by Ciera when a CCU bed is available. Transfer Line # Physical Examination Vital Signs: Vital Signs Temperature 97.4 F L 05/18/16 18:00 Pulse Rate 60 05/18/16 18:00 Respiratory Rate 14 05/18/16 18:00 Blood Pressure 118/65 05/18/16 18:00 O2 Sat by Pulse Oximetry (%) 100 05/18/16 09:00 Constitutional: Yes: No Distress, Calm Neck: Yes: Other Cardiovascular: Yes: Regular Rate and Rhythm, S1, S2. No: JVD, Gallop, Murmur, Rub Respiratory: Yes: On Nasal O2, Rhonchi Gastrointestinal: Yes: WNL, Normal Bowel Sounds, Soft Peripheral Pulses WNL: Yes Neurological: Yes: WNL, Alert, Oriented, Cran Nerves II-XII Intact Psychiatric: Yes: WNL, Alert, Oriented Labs: CBC, BMP 05/18/16 05:20 05/18/16 18:30 Laboratory Results - last 24 hr 05/18/16 05/18/16 05/18/16 01:30 01:40 05:20 WBC 20.1 H D RBC 4.05 Hgb 12.9 Hct 39.0 MCV 96.4 H MCHC 33.0 RDW 14.6 Plt Count 114 L MPV 12.4 H Neutrophils % 84.9 H Lymphocytes % 2.8 L Monocytes % 8.8 Eosinophils % 3.3 Basophils % 0.2 PTT (Actin FS) 83.4 H D Anticoagulation Therapy Puncture Site ABG pH ABG pCO2 at Pt Temp ABG pO2 at Pt Temp ABG HCO3 ABG O2 Sat (Measured) ABG O2 Content ABG Base Excess Kirit Test O2 Delivery Device Oxygen Flow Rate Vent Mode Vent Rate Mechanical Rate PEEP Pressure Support Vent Sodium 130 L Potassium 3.9 Chloride 96 L Carbon Dioxide 16 L Anion Gap 18 H BUN 59 H Creatinine 1.9 H Creat Clearance w eGFR POC Glucometer Random Glucose 200 H Hemoglobin A1c % Lactic Acid Calcium 7.5 L Phosphorus Magnesium Total Bilirubin AST ALT Alkaline Phosphatase Creatine Kinase Troponin I Total Protein Albumin TSH Urine Color Urine Appearance Urine pH Ur Specific [place] Urine Protein Urine Glucose (UA) Urine Ketones Urine Blood Urine Nitrite Urine Bilirubin Urine Urobilinogen Ur Leukocyte Esterase Urine RBC Urine WBC Vancomycin Trough 05/18/16 05/18/16 05/18/16 05:20 05:20 05:20 WBC RBC Hgb Hct MCV MCHC RDW Plt Count MPV Neutrophils % Lymphocytes % Monocytes % Eosinophils % Basophils % PTT (Actin FS) Anticoagulation Therapy Puncture Site ABG pH ABG pCO2 at Pt Temp ABG pO2 at Pt Temp ABG HCO3 ABG O2 Sat (Measured) ABG O2 Content ABG Base Excess Kirit Test O2 Delivery Device Oxygen Flow Rate Vent Mode Vent Rate Mechanical Rate PEEP Pressure Support Vent Sodium 130 L Potassium 3.9 Chloride 96 L Carbon Dioxide 15 L Anion Gap 19 H BUN 58 H Creatinine 1.8 H Creat Clearance w eGFR 38.30 POC Glucometer Random Glucose 197 H Hemoglobin A1c % 8.0 H Lactic Acid 1.844 Calcium 7.6 L Phosphorus 3.7 Magnesium 2.6 H Total Bilirubin 2.2 H AST 30 ALT 21 Alkaline Phosphatase 94 Creatine Kinase 88 Troponin I 0.16 H Total Protein 4.9 L Albumin 2.2 L TSH 0.86 Urine Color Urine Appearance Urine pH Ur Specific [place] Urine Protein Urine Glucose (UA) Urine Ketones Urine Blood Urine Nitrite Urine Bilirubin Urine Urobilinogen Ur Leukocyte Esterase Urine RBC Urine WBC Vancomycin Trough 05/18/16 05/18/16 05/18/16 05:30 06:10 12:29 WBC RBC Hgb Hct MCV MCHC RDW Plt Count MPV Neutrophils % Lymphocytes % Monocytes % Eosinophils % Basophils % PTT (Actin FS) Anticoagulation Therapy Puncture Site ABG pH ABG pCO2 at Pt Temp ABG pO2 at Pt Temp ABG HCO3 ABG O2 Sat (Measured) ABG O2 Content ABG Base Excess Kirit Test O2 Delivery Device Oxygen Flow Rate Vent Mode Vent Rate Mechanical Rate PEEP Pressure Support Vent Sodium Potassium Chloride Carbon Dioxide Anion Gap BUN Creatinine Creat Clearance w eGFR POC Glucometer 222.50175 296.48183 Random Glucose Hemoglobin A1c % Lactic Acid Calcium Phosphorus Magnesium Total Bilirubin AST ALT Alkaline Phosphatase Creatine Kinase Troponin I Total Protein Albumin TSH Urine Color Urine Appearance Urine pH Ur Specific [place] Urine Protein Urine Glucose (UA) Urine Ketones Urine Blood Urine Nitrite Urine Bilirubin Urine Urobilinogen Ur Leukocyte Esterase Urine RBC Urine WBC Vancomycin Trough 4.775 L 05/18/16 05/18/16 05/18/16 17:45 18:30 19:00 WBC RBC Hgb Hct MCV MCHC RDW Plt Count MPV Neutrophils % Lymphocytes % Monocytes % Eosinophils % Basophils % PTT (Actin FS) Anticoagulation Therapy Y Puncture Site Left radial ABG pH 7.33 L ABG pCO2 at Pt Temp 21.3 L ABG pO2 at Pt Temp 138.0 H ABG HCO3 11.0 L* ABG O2 Sat (Measured) 98.4 ABG O2 Content 24.8 H ABG Base Excess -12.7 L* Kirit Test Positive O2 Delivery Device N/c Oxygen Flow Rate 2 Vent Mode Y Vent Rate Y Mechanical Rate Y PEEP 0.0 Pressure Support Vent Y Sodium 130 L Potassium 4.0 Chloride 98 Carbon Dioxide 16 L Anion Gap 16 BUN 52 H Creatinine 1.5 H Creat Clearance w eGFR POC Glucometer Random Glucose 328 H* D Hemoglobin A1c % Lactic Acid Calcium 7.5 L Phosphorus Magnesium Total Bilirubin AST ALT Alkaline Phosphatase Creatine Kinase Troponin I Total Protein Albumin TSH Urine Color Ltyellow Urine Appearance Slcloudy Urine pH 5.0 Ur Specific [place] 1.024 Urine Protein Negative Urine Glucose (UA) 3+ H Urine Ketones 1+ H Urine Blood 3+ H Urine Nitrite Negative Urine Bilirubin Negative Urine Urobilinogen Negative Ur Leukocyte Esterase Negative Urine RBC 194 Urine WBC 6 Vancomycin Trough Microbiology 05/17/16 12:00 Blood Culture - Preliminary Blood - Peripheral Venous Pending Organism 05/17/16 11:54 Blood Culture - Preliminary Blood - Peripheral Venous Pending Organism Intake & Output 05/15/16 05/16/16 05/17/16 05/18/16 23:59 23:59 23:59 23:59 Intake Total 2650 8320 Output Total 2300 Balance 2650 4667 Weight 87.543 kg 91.824 kg Current Medications Generic Name Dose Route Start Last Admin Trade Name Freq PRN Reason Stop Dose Admin Allopurinol 300 mg 05/18/16 10:00 05/18/16 09:13 Zyloprim - PO 300 mg DAILY ESTELA Administration Chlorhexidine Gluconate 1 applic 05/17/16 22:00 05/18/16 21:19 Hibiclens For Decolonization - TP 1 applic HS ESTELA Administration Dofetilide 0.125 mg 05/18/16 15:00 05/18/16 21:14 Tikosyn (Restricted To Cardiology) - PO 0.125 mg BID ESTELA Administration Gabapentin 100 mg 05/17/16 22:00 05/18/16 21:13 Neurontin - PO 100 mg HS ESTELA Administration Heparin Sodium (Porcine) 1,000 unit 05/17/16 20:23 Heparin - IVPUSH PRN PRN Heparin Heparin Sodium (Porcine) 5,000 unit 05/17/16 20:23 Heparin - IVPUSH PRN PRN Heparin Heparin Sodium (Porcine) 5,000 unit 05/17/16 22:00 05/18/16 21:13 Heparin - SQ Not Given BID ESTELA Norepinephrine Bitartrate 8, 500 mls @ 9.84 mls/hr 05/17/16 15:45 05/18/16 16: 31 000 mcg/ Dextrose IV 56 mls/hr ASDIR ESTELA Administration Protocol 0.03 MCG/KG/MIN Heparin Sodium (Porcine) 25, 500 mls @ 20 mls/hr 05/17/16 20:30 05/18/16 03:00 000 unit/ Sodium Chloride IV 950 unit/hr TITR ESTELA Titration Protocol 1,000 UNIT/HR Famotidine/Sodium Chloride 50 mls @ 100 mls/hr 05/18/16 10:00 05/18/16 09:13 Pepcid 20 Mg Premixed Ivpb - IVPB 100 mls/hr DAILY ESTELA Administration Vasopressin 50 units/ Sodium 100 mls @ 4 mls/hr 05/18/16 14:00 05/18/16 14:40 Chloride IVPB 4 mls/hr ASDIR ESTELA Administration Protocol 2 UNITS/HR Vancomycin HCl 1,250 mg/ 250 mls @ 166.667 mls/hr 05/18/16 16:30 05/18/16 16:34 Dextrose IVPB 166.667 mls/hr DAILY@1630 ESTELA Administration Sodium Chloride 1,000 mls @ 100 mls/hr 05/18/16 17:26 05/18/16 18:19 Normal Saline - IV Not Given Q10H ESTELA Insulin Aspart 1 vial 05/18/16 11:00 05/18/16 17:10 Novolog Vial Sliding Scale - SQ 10 units ACHS ESTELA Administration Protocol Mupirocin 1 applic 05/17/16 22:00 05/18/16 21:19 Bactroban Ointment (For Decolonization) - NS 05/22/16 21:59 1 applic BID ESTELA Administration Mycophenolate Mofetil 1,000 mg 05/17/16 22:00 05/18/16 21:07 Cellcept - PO 1,000 mg HS ESTELA Administration Mycophenolate Mofetil 1,500 mg 05/18/16 10:00 05/18/16 09:14 Cellcept - PO 1,500 mg DAILY ESTEL[facility] Administration Piperacillin Sod/Tazobactam Sod 3.375 gm 05/17/16 20:30 05/18/16 17:12 Zosyn 3.375gm Ivpb (Pre-Docked) IVPB 3.375 gm Q8H-IV [facility] Administration Rosuvastatin Calcium 5 mg 05/17/16 21:30 05/17/16 23:30 Crestor - PO 5 mg Q48H [facility]EL[facility] Administration Critical Care Total Critical Care Time (in minutes): 31 Critical Care Statement: The care of this patient involved high complexity decision making to prevent further life threatening deterioration of the patient 's condition and/or to evalute & treat vital organ system(s) failure or risk of failure.
[2016-05-19] MEDS ORDERED: SODIUM CHLORIDE 500 ML IV STA (00:45)
[2016-05-19] MEDS: PIPERACILLIN/TAZOB 3.375 GM/50 ML PRE-DOCKED IVPB SCH ×2 (01:36→09:52)
[2016-05-19 02:42] LABS: URINE APPEARANCE CLEAR; URINE BILIRUBIN NEGATIVE (NEGATIVE); URINE COLOR YELLOW; URINE GLUCOSE (UA) 3+ (NEGATIVE); URINE KETONE TRACE (NEGATIVE); URINE LEUK ESTERASE NEGATIVE (NEGATIVE); URINE NITRITE NEGATIVE (NEGATIVE); URINE PROTEIN NEGATIVE (NEGATIVE); URINE UROBILINOGEN 2.0 E.U/dl E.U./dl (0.2-1.0)
[2016-05-19 02:44] LABS: URINE BLOOD 2+ (NEGATIVE)
[2016-05-19 02:49] LABS: URINE BACTERIA RARE /hpf (NONE SEEN); URINE MUCUS RARE; URINE RBC 10 /hpf (0-3); URINE WBC 4 /hpf (3-5)
[2016-05-19] MEDS: SODIUM CHLORIDE 1,000 ML IV SCH (03:00)
[2016-05-19] MEDS ORDERED: NOREPINEPHRINE BITARTRATE 4 MG/4 ML ML IV ONE (05:53)
[2016-05-19] MEDS: INSULIN SLIDING SCALE (NOVOLOG) 1 VIAL SQ SCH (06:11)
[2016-05-19] MEDS: NOREPINEPHRINE BITARTRATE 8,000 MCG in DEXTROSE 5%-WATER - 492 ML IV SCH (06:13)
[2016-05-19 06:27] LABS: ALBUMIN 2.1 g/dl (3.4-5.0); ANION GAP 14 (8-16); CALCIUM 7.6 mg/dL (8.5-10.1); CO2 19 mmol/L (21-32); CREATININE 1.2 mg/dL (0.7-1.3); GLUCOSE,RANDOM 205 mg/dL (74-106); MAGNESIUM 2.6 mg/dL (1.8-2.4); PHOSPHOROUS 2.9 mg/dL (2.5-4.9); SGOT/AST 21 U/L (15-37); SGPT/ALT 19 U/L (12-78)
[2016-05-19 06:29] LABS: MCH 31.9 pg (25.7-33.7); MCHC 33.3 g/dl (32.0-35.9); MEAN CELL VOLUME 95.6 fl (80-96); PLATELET COUNT 135 K/MM3 (134-434); RDW 15.1 % (11.9-15.9); WHITE BLOOD COUNT 18.6 K/mm3 (4.0-10.0)
[2016-05-19 06:30] LABS: ALK PHOS 86 U/L (45-117); BILIRUBIN,TOTAL 1.4 mg/dL (0.2-1.0)
[2016-05-19] MEDS: HEPARIN - 25,000 UNIT in SODIUM CHLORIDE 495 ML IV SCH ×3 (06:35→08:10)
[2016-05-19] MEDS ORDERED: INSULIN DETEMIR 100 UNITS/ML MDV SQ SCH (07:00)
[2016-05-19 09:23] LABS: SODIUM,RANDOM URINE 14 MMOL/L
[2016-05-19 09:24] LABS: CHLORIDE,RANDOM URINE < 10 MMOL/L
[2016-05-19] MEDS ORDERED: PT OWN MED DRAWER 7, Y5N ONE (09:48)
[2016-05-19] MEDS: ALLOPURINOL 300 MG TABLET (FP) PO SCH (09:55)
[2016-05-19] MEDS: DOFETILIDE 0.125 MG CAPSULE PO SCH (09:55)
[2016-05-19 10:05] VITALS: BP 104/71; PULSE 66; TEMP 97.5
[2016-05-19] MEDS: MYCOPHENOLATE MOFETIL 250 MG CAPSULE PO SCH (10:15)
[2016-05-19] MEDS: FAMOTIDINE 20 MG/50 ML IVPB 50 ML IVPB SCH (11:06)
--- NOTE | 2016-05-19 11:08 | PN ---
Progress Note, Physician Chief Complaint: septic shock, CMP History of Present Illness: pt denies sob, orthopnea; no palpit, cp - Current Medication List Current Medications: Active Medications Allopurinol (Zyloprim -) 300 mg PO DAILY [facility] Last Admin: 05/19/16 09:55 Dose: 300 mg Chlorhexidine Gluconate (Hibiclens For Decolonization -) 1 applic TP HS [facility] Last Admin: 05/18/16 21:19 Dose: 1 applic Dofetilide (Tikosyn (Restricted To Cardiology) -) 0.125 mg PO BID [facility] Last Admin: 05/19/16 09:55 Dose: 0.125 mg Gabapentin (Neurontin -) 100 mg PO HS [facility] Last Admin: 05/18/16 21:13 Dose: 100 mg Heparin Sodium (Porcine) (Heparin -) 1,000 unit IVPUSH PRN PRN PRN Reason: Heparin Last Admin: 05/19/16 08:08 Dose: 1,000 unit Heparin Sodium (Porcine) (Heparin -) 5,000 unit IVPUSH PRN PRN PRN Reason: Heparin Norepinephrine Bitartrate 8, (000 mcg/ Dextrose) 500 mls @ 9.84 mls/hr IV ASDIR ESTELA; 0.03 MCG/KG/MIN PRN Reason: Protocol Last Admin: 05/19/16 06:13 Dose: 18.8 mls/hr Heparin Sodium (Porcine) 25, (000 unit/ Sodium Chloride) 500 mls @ 20 mls/hr IV TITR ESTELA; 1,000 UNIT/HR PRN Reason: Protocol Last Admin: 05/19/16 08:10 Dose: 21 mls/hr Famotidine/Sodium Chloride (Pepcid 20 Mg Premixed Ivpb -) 50 mls @ 100 mls/hr IVPB DAILY [facility] Last Admin: 05/19/16 11:06 Dose: 100 mls/hr Vasopressin 50 units/ Sodium (Chloride) 100 mls @ 4 mls/hr IVPB ASDIR ESTELA; 2 UNITS/HR PRN Reason: Protocol Last Admin: 05/18/16 14:40 Dose: 4 mls/hr Vancomycin HCl 1,250 mg/ (Dextrose) 250 mls @ 166.667 mls/hr IVPB DAILY@1630 [facility] Last Admin: 05/18/16 16:34 Dose: 166.667 mls/hr Sodium Chloride (Normal Saline -) 1,000 mls @ 100 mls/hr IV Q10H [facility] Last Admin: 05/19/16 03:00 Dose: 100 mls/hr Insulin Aspart (Novolog Vial Sliding Scale -) 1 vial SQ ACHS [facility] PRN Reason: Protocol Last Admin: 05/19/16 06:11 Dose: 4 units Insulin Detemir (Levemir Vial) 8 units SQ BIDI [facility] Last Admin: 05/19/16 06:24 Dose: 8 units Mupirocin (Bactroban Ointment (For Decolonization) -) 1 applic NS BID [facility] Stop: 05/22/16 21:59 Last Admin: 05/18/16 21:19 Dose: 1 applic Mycophenolate Mofetil (Cellcept -) 1,000 mg PO HS [facility] Last Admin: 05/18/16 21:07 Dose: 1,000 mg Mycophenolate Mofetil (Cellcept -) 1,500 mg PO DAILY [facility] Last Admin: 05/19/16 10:15 Dose: Not Given Piperacillin Sod/Tazobactam Sod (Zosyn 3.375gm Ivpb (Pre-Docked)) 3.375 gm IVPB Q8H-IV [facility] Last Admin: 05/19/16 09:52 Dose: 3.375 gm Rosuvastatin Calcium (Crestor -) 5 mg PO Q48H [facility] Last Admin: 05/17/16 23:30 Dose: 5 mg - Objective Vital Signs: Vital Signs Temperature 97.5 F L 05/19/16 10:14 Pulse Rate 66 05/19/16 10:00 Respiratory Rate 18 05/19/16 10:00 Blood Pressure 104/71 05/19/16 10:00 O2 Sat by Pulse Oximetry (%) 100 05/19/16 09:00 Constitutional: Yes: Well Nourished, No Distress, Calm Cardiovascular: Yes: Regular Rate and Rhythm, S1, S2. No: JVD, Gallop, Murmur Respiratory: Yes: Regular, CTA Bilaterally (anteriorly). No: Accessory Muscle Use, Rales, Wheezes Extremities: No: Cold Edema: No Neurological: Yes: Alert, Oriented Labs: CBC, BMP 05/19/16 05:10 05/19/16 05:10 INR, PTT INR 2.90 (0.82-1.09) H 05/17/16 17:50 - ....Imaging EKG: Other (tele: afib, V-paced) Assessment/Plan CXR: clear lung ruiz 61 yo with h/o cardiac sarcoidosis with systolic dysfunction (EF 33 or 39% 2015), BiVICD, CAD s/p ND and stent x 1, atrial flutter s/p cardioversion 8 on dofetilide HTN, HLD, IDDM presents with weakness, confusion. Hypotension/sepsis/gram pos bacteremia - source of bacteremia unclear, may need ROLDAN at [place] (incl to look at device leads) - doubt cardiogenic shock: CVP has been low-normal to normal, pt is warm peripherally - cont norepi and IVF as doing (CVP running close to 0). 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 + PET scan for sarcoid two years ago. (no pulm manifestations) Initiated prednisone treatment in October, but was looking for alternative so started cellcept in december and transitioned off prednisone recently this April. - Ok to continue IVF/pressors as needed for resuscitation as mentioned above. At baseline patient's systolic bp typically 100's-110's. - s/p BIV ICD (no h/o ventricular arrhythmias). Per patient most recent EF was either 33 or 39% - clinically euvolemic/dry here, cont cautious fluids with close monitoring - holding metoprolol, telmisartan and spironolactone while hypotensive aflutter - currently rate controlled with BiV pacing - Because of acute renal failure, transitioned from xarelto to heparin drip. - Reduced dofetilide dose to .125 mg in light of renal function, but not in stock per pharmacy. Can resume .250 mg BID once GFR > 40 (likely tomorrow since currently GFR 38). - further input on dofetilide dose per EP at [facility] CAD - no anginal symptoms. troponins neg x 1. con't HEVER. - con't AC. (not on ASA, defer to primary tub rider). ok to hold statin until liver function normalizes. statin resumed. est crit care time 35min
--- NOTE | 2016-05-19 11:49 | PN ---
Teaching Attending Note Name of Resident: Gomez Rios ATTENDING PHYSICIAN STATEMENT I saw and evaluated the patient. I reviewed the resident's note and discussed the case with the resident. I agree with the resident's findings and plan as documented. SUBJECTIVE: Patient seen and examined in the ICU. Remains on NE @ 4mcq for BP support. No CP or SOB. Intake & Output 05/16/16 05/17/16 05/18/16 05/19/16 23:59 23:59 23:59 23:59 Intake Total 2650 7367 2376.9 Output Total 3800 900 Balance 2650 3567 1476.9 Weight 193 lb 202 lb 7 oz 207 lb 1.6 oz Last Vital Signs Temp Pulse Resp BP Pulse Ox 97.5 F L 66 18 104/71 100 05/19/16 10:14 05/19/16 10:00 05/19/16 10:00 05/19/16 10:00 05/19/16 09:00 Constitutional: Yes: Awake and alert, NAD Cardiovascular: Yes: Regular Rate and Rhythm, S1, S2. No: JVD, Gallop, Murmur Respiratory: Yes: Regular, CTA. No: Accessory Muscle Use, Rales, Wheezes Extremities: No: Cold Edema: No Neurological: Yes: Alert, Oriented Labs: Laboratory Results - last 24 hr 05/17/16 05/17/16 05/18/16 08:30 08:30 12:29 WBC RBC Hgb Hct MCV MCHC RDW Plt Count MPV PTT (Actin FS) Anticoagulation Therapy Puncture Site ABG pH ABG pCO2 at Pt Temp ABG pO2 at Pt Temp ABG HCO3 ABG O2 Sat (Measured) ABG O2 Content ABG Base Excess Kirit Test O2 Delivery Device Oxygen Flow Rate Vent Mode Vent Rate Mechanical Rate PEEP Pressure Support Vent Sodium Potassium Chloride Carbon Dioxide Anion Gap BUN Creatinine Creat Clearance w eGFR POC Glucometer [phone] Random Glucose Calcium Phosphorus Magnesium Total Bilirubin AST ALT Alkaline Phosphatase Total Protein Albumin Urine Color Urine Appearance Urine pH Ur Specific [place] Urine Protein Urine Glucose (UA) Urine Ketones Urine Blood Urine Nitrite Urine Bilirubin Urine Urobilinogen Ur Leukocyte Esterase Urine RBC Urine WBC Urine Bacteria Urine Mucus Urine Osmolality 599 Ur Random Sodium 14 Ur Random Potassium 22.6 Ur Random Chloride < 10 05/18/16 05/18/16 05/18/16 17:08 17:45 18:30 WBC RBC Hgb Hct MCV MCHC RDW Plt Count MPV PTT (Actin FS) Anticoagulation Therapy Y Puncture Site Left radial ABG pH 7.33 L ABG pCO2 at Pt Temp 21.3 L ABG pO2 at Pt Temp 138.0 H ABG HCO3 11.0 L* ABG O2 Sat (Measured) 98.4 ABG O2 Content 24.8 H ABG Base Excess -12.7 L* Kirit Test Positive O2 Delivery Device N/c Oxygen Flow Rate 2 Vent Mode Y Vent Rate Y Mechanical Rate Y PEEP 0.0 Pressure Support Vent Y Sodium 130 L Potassium 4.0 Chloride 98 Carbon Dioxide 16 L Anion Gap 16 BUN 52 H Creatinine 1.5 H Creat Clearance w eGFR POC Glucometer [phone] Random Glucose 328 H* D Calcium 7.5 L Phosphorus Magnesium Total Bilirubin AST ALT Alkaline Phosphatase Total Protein Albumin Urine Color Urine Appearance Urine pH Ur Specific [place] Urine Protein Urine Glucose (UA) Urine Ketones Urine Blood Urine Nitrite Urine Bilirubin Urine Urobilinogen Ur Leukocyte Esterase Urine RBC Urine WBC Urine Bacteria Urine Mucus Urine Osmolality Ur Random Sodium Ur Random Potassium Ur Random Chloride 05/18/16 05/18/16 05/19/16 19:00 21:22 02:27 WBC RBC Hgb Hct MCV MCHC RDW Plt Count MPV PTT (Actin FS) Anticoagulation Therapy Puncture Site ABG pH ABG pCO2 at Pt Temp ABG pO2 at Pt Temp ABG HCO3 ABG O2 Sat (Measured) ABG O2 Content ABG Base Excess Kirit Test O2 Delivery Device Oxygen Flow Rate Vent Mode Vent Rate Mechanical Rate PEEP Pressure Support Vent Sodium Potassium Chloride Carbon Dioxide Anion Gap BUN Creatinine Creat Clearance w eGFR POC Glucometer [phone] Random Glucose Calcium Phosphorus Magnesium Total Bilirubin AST ALT Alkaline Phosphatase Total Protein Albumin Urine Color Ltyellow Yellow Urine Appearance Slcloudy Clear Urine pH 5.0 5.0 Ur Specific [place] 1.024 1.025 Urine Protein Negative Negative Urine Glucose (UA) 3+ H 3+ H Urine Ketones 1+ H Trace H Urine Blood 3+ H 2+ H Urine Nitrite Negative Negative Urine Bilirubin Negative Negative Urine Urobilinogen Negative 2.0 e.u/dl Ur Leukocyte Esterase Negative Negative Urine RBC 194 10 Urine WBC 6 4 Urine Bacteria Rare Urine Mucus Rare Urine Osmolality Ur Random Sodium Ur Random Potassium Ur Random Chloride 05/19/16 05/19/16 05/19/16 05:10 05:10 05:10 WBC 18.6 H RBC 4.03 Hgb 12.9 Hct 38.6 MCV 95.6 MCHC 33.3 RDW 15.1 Plt Count 135 MPV 12.0 H PTT (Actin FS) 40.4 H D Anticoagulation Therapy Puncture Site ABG pH ABG pCO2 at Pt Temp ABG pO2 at Pt Temp ABG HCO3 ABG O2 Sat (Measured) ABG O2 Content ABG Base Excess Kirit Test O2 Delivery Device Oxygen Flow Rate Vent Mode Vent Rate Mechanical Rate PEEP Pressure Support Vent Sodium 132 L Potassium 3.5 Chloride 99 Carbon Dioxide 19 L Anion Gap 14 BUN 47 H Creatinine 1.2 Creat Clearance w eGFR > 60 POC Glucometer Random Glucose 205 H D Calcium 7.6 L Phosphorus 2.9 D Magnesium 2.6 H Total Bilirubin 1.4 H D AST 21 D ALT 19 Alkaline Phosphatase 86 Total Protein 5.0 L Albumin 2.1 L Urine Color Urine Appearance Urine pH Ur Specific [place] Urine Protein Urine Glucose (UA) Urine Ketones Urine Blood Urine Nitrite Urine Bilirubin Urine Urobilinogen Ur Leukocyte Esterase Urine RBC Urine WBC Urine Bacteria Urine Mucus Urine Osmolality Ur Random Sodium Ur Random Potassium Ur Random Chloride 05/19/16 05:15 WBC RBC Hgb Hct MCV MCHC RDW Plt Count MPV PTT (Actin FS) Anticoagulation Therapy Puncture Site ABG pH ABG pCO2 at Pt Temp ABG pO2 at Pt Temp ABG HCO3 ABG O2 Sat (Measured) ABG O2 Content ABG Base Excess Kirit Test O2 Delivery Device Oxygen Flow Rate Vent Mode Vent Rate Mechanical Rate PEEP Pressure Support Vent Sodium Potassium Chloride Carbon Dioxide Anion Gap BUN Creatinine Creat Clearance w eGFR POC Glucometer [phone] Random Glucose Calcium Phosphorus Magnesium Total Bilirubin AST ALT Alkaline Phosphatase Total Protein Albumin Urine Color Urine Appearance Urine pH Ur Specific [place] Urine Protein Urine Glucose (UA) Urine Ketones Urine Blood Urine Nitrite Urine Bilirubin Urine Urobilinogen Ur Leukocyte Esterase Urine RBC Urine WBC Urine Bacteria Urine Mucus Urine Osmolality Ur Random Sodium Ur Random Potassium Ur Random Chloride ASSESSMENT/PLAN: Septic +/- cardiogenic shock GPC bacteremia Cardiac Sarcoidosis Cardiomyopathy ELOY - improving Hyponatremia DM CAD AF HTN -ABX per ID Vanc/Zosyn -IVF -Cardiology follow up -Heparin drip for full AC -Stress steroids (Hydrocort 100q8) and wean when shock improves -Insulin -GI PPx -Will be transferred to [place] for further workup of possible Cardiac Sarcoid complications Dr Ralph CCTime 35"
--- NOTE | 2016-05-19 14:08 | PN ---
Progress Note, Physician History of Present Illness: patient seen and examined at bedside due for transfer to [place] - Objective Vital Signs: Vital Signs Temperature 97.5 F L 05/19/16 10:14 Pulse Rate 66 05/19/16 10:00 Respiratory Rate 18 05/19/16 10:00 Blood Pressure 104/71 05/19/16 10:00 O2 Sat by Pulse Oximetry (%) 100 05/19/16 09:00 Constitutional: Yes: Well Nourished, No Distress Eyes: Yes: EOM Intact HENT: Yes: Atraumatic Neck: Yes: Supple Cardiovascular: Yes: Regular Rate and Rhythm Respiratory: Yes: CTA Bilaterally Extremities: Yes: Cool Labs: CBC, BMP 05/19/16 05:10 05/19/16 05:10 INR, PTT INR 2.90 (0.82-1.09) H 05/17/16 17:50 Assessment/Plan 61M with multiple medical problems presents with septic shock secondary to bacteremia problem list: Septic +/- cardiogenic shock GPC bacteremia Cardiac Sarcoidosis Cardiomyopathy ELOY - improving Hyponatremia DM CAD AF HTN Continue antibiotics continue heparin gtt insulin sliding scale Cardiology consult for transfer to [place] CCU for BIventricular device change since bacteremic
== END 2016-05-19 11:40 | disposition short-term general hospital (02) | DRG 871 ==
LOC: FER 11:34 → JICU 16:34
PROVIDERS: ADMIT Internal Medicine; ATTEND Nurse Practitioner Family
PROC: 05HM33Z Insertion of Infusion Device into Right Internal Jugular Vein, Percutaneous Approach (ICD-10-PCS; principal; 2016-05-18)
DX: A41.9 Sepsis, unspecified organism (principal); R65.21 Severe sepsis with septic shock; I50.21 Acute systolic (congestive) heart failure; I42.9 Cardiomyopathy, unspecified; N17.9 Acute kidney failure, unspecified; E87.1 Hypo-osmolality and hyponatremia; I48.92 Unspecified atrial flutter; E87.2 Acidosis; E11.9 Type 2 diabetes mellitus without complications; I48.91 Unspecified atrial fibrillation; E86.0 Dehydration; D86.85 Sarcoid myocarditis; E78.5 Hyperlipidemia, unspecified; I25.10 Atherosclerotic heart disease of native coronary artery without angina pectoris; Z98.61 Coronary angioplasty status; I25.2 Old myocardial infarction; I11.0 Hypertensive heart disease with heart failure
CPT/HCPCS: 36415; 36600; 70450-TC; 71010-TC; 80048; 80053; 81003; 81015; 82009; 82150; 82436; 82550; 82553; 82803; 83036; 83605; 83690; 83735; 83880; 83930; 83935; 84100; 84133; 84300; 84443; 84484; 85025; 85027; 85610; 85730; 86850; 86900; 86901; 87040; 87076; 87086; 87186; 87254; 87804; 87899; 93005; 93010; 94010; 99285-25; G0480; J1644; J7517